=== PATIENT | female | born 1970 | race Caucasian/White ===

== ENCOUNTER 2016-08-13 11:40 | Emergency (ER) | payer BC ==
[2016-08-13] MEDS ORDERED: DUONEB 0.5-3 MG/3 ml Neb IH ONE ×2 (12:17→13:05)
--- NOTE | 2016-08-13 12:25 | ERPHSYRPT ---
- History of Present Illness Time Seen by Provider: 08/13/16 12:15 Source: patient Exam Limitations: clinical condition Patient Subjective Stated Complaint: PT REPORTS COUGH-UNABLE TO COUGH ANYTHING UP-SOB WITH MOVEMENT-SORENESS WITH COUGH-UNSURE OF FEVER-DENIES N/V/D-STATES WAS PLACED ON PREDNISONE SAT-HAS GOTTEN WORSE SINCE THEN Triage Nursing Assessment: PT PINK WARM ET DRY-NO RETRACTIONS NOTED-WHEEZES ADVENTIOUS BREATH SOUNDS NOTED THROUGHOUT-ABLE TO SPEAK IN COMPLETE SENTECES WITH EASE Physician History: PATIENT COMPLAINS OF PRODUCTIVE COUGH GREEN SPUTUM, SMOKES DAILY, PLACED ONTO PREDNISONE PAST FEW DAYS NO RELIEF. UNSURE OR FEVER OR CHILLS.HAS ASSOCIATED DIFFICULTY BREATHING. Timing/Duration: day(s) Cough Quality/Degree: productive cough, sputum Possible Cause: occasional episodes Modifying Factors: Improves With: coughing Associated Symptoms: chest pain/soreness, cough Allergies/Adverse Reactions: No Known Drug Allergies Allergy (Verified 08/13/16 11:49) Home Medications: Lisinopril/Hydrochlorothiazide [Lisinopril-Hctz 20-12.5 mg Tab] 1 tab PO DAILY 10/22/12 [History] Metformin HCl 1000 mg [Glucophage 1000 MG] 1,000 mg PO BID 10/22/12 [History] Hx Tetanus, Diphtheria Vaccination/Date Given: Yes Hx Influenza Vaccination/Date Given: Yes Hx Pneumococcal Vaccination/Date Given: No Immunizations Up to Date: Yes - Review of Systems Constitutional: No Fever, No Chills Eyes: No Symptoms Ears, Nose, & Throat: No Symptoms Respiratory: Cough, Dyspnea Cardiac: No Symptoms, No Chest Pain, No Edema, No Syncope Abdominal/Gastrointestinal: No Symptoms, No Abdominal Pain, No Nausea, No Vomiting, No Diarrhea Genitourinary Symptoms: No Symptoms, No Dysuria Musculoskeletal: No Symptoms, No Back Pain, No Neck Pain Skin: No Symptoms, No Rash Neurological: No Dizziness, No Focal Weakness, No Sensory Changes Psychological: No Symptoms Endocrine: No Symptoms All Other Systems: Reviewed and Negative - Past Medical History Pertinent Past Medical History: Yes Neurological History: No Pertinent History ENT History: No Pertinent History Cardiac History: Hypertension Respiratory History: Asthma Endocrine Medical History: Diabetes Type II Musculoskeletal History: No Pertinent History GI Medical History: No Pertinent History History: No Pertinent History Psycho-Social History: No Pertinent History Female Reproductive Disorders: No Pertinent History - Past Surgical History Past Surgical History: Yes Neuro Surgical History: No Pertinent History Cardiac: No Pertinent History Respiratory: No Pertinent History Gastrointestinal: Cholecystectomy Genitourinary: No Pertinent History Musculoskeletal: No Pertinent History Female Surgical History: Section Other Surgical History: Carpal tunnel on right hand 1992 - Social History Smoking Status: Current every day smoker How long have you smoked: 25 years Exposure to second hand smoke: Yes Drug Use: none Patient Lives Alone: No - Female History Hx Last Menstrual Period: LAST WEEK Hx Now: No - Nursing Vital Signs Nursing Vital Signs: Initial Vital Signs Temperature 97.4 F Temperature Source Oral Pulse Rate 105 Respiratory Rate 18 Blood Pressure 117/74 Pain Intensity 0 - Physical Exam General Appearance: no apparent distress, alert Eye Exam: PERRL/EOMI, eyes nml inspection Ears, Nose, Throat Exam: normal ENT inspection, TMs normal, pharynx normal, moist mucous membranes Neck Exam: normal inspection, non-tender, supple, full range of motion Respiratory Exam: diminished breath sounds, wheezing, No respiratory distress Cardiovascular Exam: regular rate/rhythm, normal heart sounds Gastrointestinal/Abdomen Exam: soft, normal bowel sounds, No tenderness Back Exam: normal inspection, No CVA tenderness, No vertebral tenderness Extremity Exam: normal inspection, normal range of motion Neurologic Exam: alert, oriented x 3, cooperative, normal mood/affect, sensation nml, No motor deficits Skin Exam: normal color, warm, dry, No rash Lymphatic Exam: No adenopathy SpO2 Interpretation: normal SpO2: 97 Oxygen Delivery: Room Air - Radiology Exams Chest X-ray Interpretation: Discussed w/ radiologist, Negative, No Infiltrates Ordered Tests: Active Orders 24 hr Category Date Time Status Oxygen-ED Only NASAL CANNULA 2 lpm Care 08/13/16 12:17 Active CHEST 1 VIEW (PORTABLE) Stat Exams 08/13/16 12:17 Completed BLOOD CULTURE Stat Lab 08/13/16 12:40 Received BMP Stat Lab 08/13/16 12:40 Completed CBC W DIFF Stat Lab 08/13/16 12:40 Completed Respiratory Nebulizer STAT RT 08/13/16 12:18 Completed Respiratory Nebulizer STAT RT 08/13/16 13:53 Completed Medication Summary Generic Name Dose Route Start Last Admin Trade Name Freq PRN Reason Stop Dose Admin Sodium Chloride 1,000 mls @ 200 mls/hr 08/13/16 12:30 08/13/16 13:06 Sodium Chloride 0.9% 1000 Ml IV 09/12/16 12:29 200 mls/hr .Q5H ENMANUEL Administration Ceftriaxone Sodium/Dextrose 50 mls @ 100 mls/hr 08/13/16 12:30 08/13/16 13:06 Rocephin 1 Gm-D5w 50 Ml Bag IV 09/12/16 12:29 100 mls/hr Q24H ENMANUEL Administration Discontinued Medications Generic Name Dose Route Start Last Admin Trade Name Zac DAVID Reason Stop Dose Admin Albuterol/Ipratropium 3 ml 08/13/16 12:17 08/13/16 13:09 Duoneb 0.5-3 Mg/3 Ml Neb IH 08/13/16 12:18 3 ml STAT ONE Administration Albuterol/Ipratropium Confirm 08/13/16 13:05 Duoneb 0.5-3 Mg/3 Ml Neb Administered 08/13/16 13:06 Dose 3 ml IH .STK-MED ONE Sodium Chloride Confirm 08/13/16 13:00 Sodium Chloride 0.9% 1000 Ml Administered 08/13/16 13:01 Dose 1,000 mls @ ud .ROUTE .STK-MED ONE Ceftriaxone Sodium/Dextrose Confirm 08/13/16 13:01 Rocephin 1 Gm-D5w 50 Ml Bag Administered 08/13/16 13:02 Dose 50 mls @ ud IV .STK-MED ONE Levalbuterol HCl 1.25 mg 08/13/16 13:43 08/13/16 13:53 Xopenex 1.25 Mg/0.5 Ml Ud Nebule IH 08/13/16 13:44 1.25 mg STAT ONE Administration Levalbuterol HCl Confirm 08/13/16 13:47 Xopenex 1.25 Mg/0.5 Ml Ud Nebule Administered 08/13/16 13:48 Dose 1.25 mg IH .STK-MED ONE Sodium Chloride Confirm 08/13/16 13:48 Sodium Chloride 3 Ml Ud Nebules Administered 08/13/16 13:49 Dose 3 ml IH .STK-MED ONE Lab/Rad Data: Laboratory Result Diagrams 08/13/16 12:40 08/13/16 12:40 Laboratory Results 08/13/16 08/13/16 Range/Units 12:40 12:40 WBC 12.0 H (4.0-10.5) K/mm3 RBC 5.47 H (4.1-5.4) M/mm3 Hgb 15.5 (12.0-16.0) gm/dl Hct 46.3 (35-47) % MCV 84.6 (78-100) fl MCH 28.3 (26-32) pg MCHC 33.5 (32-36) g/dl RDW 15.7 H (11.5-14.0) % Plt Count 348 (150-450) K/mm3 MPV 10.1 H (6-9.5) fl Gran % 56.2 (36.0-66.0) % Lymphocytes % 35.5 (24.0-44.0) % Monocytes % 5.9 (0.0-12.0) % Eosinophils % 2.2 (0.00-5.0) % Basophils % 0.2 (0.0-0.4) % Basophils # 0.02 (0-0.4) Sodium 134 L (136-145) mEq/L Potassium 3.7 (3.5-5.1) mEq/L Chloride 97 L (98-107) mEq/L Carbon Dioxide 26.1 (21-32) mEq/L Anion Gap 14.3 (5-15) MEQ/L BUN 21 H (9-20) mg/dL Creatinine 1.30 (0.55-1.30) mg/dl Estimated GFR 47 ML/MIN Glucose 270 H (70-110) MG/DL Calcium 9.2 (8.5-10.1) mg/dL - Progress Progress Note: 08/13/16 12:23 PATIENT ADMINISTERED IV FLUIDS NORMAL SALINE, DUO NEB AEROSOL TX, ROCEPHIN 1GM AFTER 2 SETS OF BLOOD CULTURES 08/13/16 14:23 HAD 2ND AEROSOL TX XOPENEX 1.25MG AEROSOL Counseled pt/family regarding: lab results, diagnosis, need for follow-up - Departure Time of Disposition: 14:35 Departure Disposition: Home Clinical Impression: ACUTE ASTHMATIC BRONCHITIS Condition: Stable Critical Care Time: No Referrals: ALFONZO MURILLO NP [Primary Care Provider] - Additional Instructions: ANTIBIOTIC CEFTIN 250MG TWICE DAILY FOR 10 DAYS. BEGIN ALBUTEROL NEBULIZER EVERY 4 HOURS FOR DIFFICULTY BREATHING NEEDED. CONSULT YOUR FAMILY PHYSICIAN FOR EVALUATION IN 1 WEEK, AND CONTINUE ALL CURRENT MEDICATIONS. Prescriptions: Albuterol 2.5 mg/3 ml Neb [Proventil 2.5 mg/3 ml Neb] 2.5 mg IH Q4HPRN PRN #25 neb PRN Reason: DIFFICULTY BREATHING Cefuroxime Axetil [Cefuroxime] 250 mg PO BID #20 tablet
[2016-08-13] MEDS ORDERED: Sodium Chloride 0.9% 1000 ML 1,000 ML IV SCH (12:30)
[2016-08-13] MEDS ORDERED: ROCEPHIN 1 Gm-D5w 50 ml Bag** 50 ML IV SCH (12:30)
--- NOTE | 2016-08-13 12:46 | XRAY ---
Indication: Dyspnea and cough. Comparison: November 04, 2011 Portable chest again demonstrates normal heart, lungs, and bony thorax.
[2016-08-13] MEDS ORDERED: Sodium Chloride 0.9% 1000 ML 1,000 ML ONE (13:00)
[2016-08-13] MEDS ORDERED: ROCEPHIN 1 Gm-D5w 50 ml Bag** 50 ML IV ONE (13:01)
[2016-08-13 13:02] LABS: BASOPHIL % 0.2 % (0.0-0.4); Eosinophil % 2.2 % (0.00-5.0); Granulocytes % 56.2 % (36.0-66.0); Lymphocytes % 35.5 % (24.0-44.0); Mean Cell Volume 84.6 fl (78-100); Mean Corpuscular Hemoglobin 28.3 pg (26-32); Mean Platelet Volume 10.1 fl (6-9.5); Monocytes % 5.9 % (0.0-12.0); Platelet Count 348 K/mm3 (150-450); Red Blood Count 5.47 M/mm3 (4.1-5.4); Red Cell Distribution Width 15.7 % (11.5-14.0)
[2016-08-13 13:28] LABS: ANION GAP 14.3 MEQ/L (5-15); Carbon Dioxide 26.1 mEq/L (21-32); Potassium 3.7 mEq/L (3.5-5.1)
[2016-08-13] MEDS ORDERED: Xopenex 1.25 MG/0.5 ML UD NEBULE IH ONE ×2 (13:43→13:47)
[2016-08-13] MEDS ORDERED: Sodium Chloride 3 ML UD NEBULES IH ONE (13:48)
[2016-08-13 14:22] VITALS: O2SAT 97
[2016-08-13 14:49] VITALS: BP 124/70; PULSE 70
== END 2016-08-13 14:49 | disposition home or self-care (01) ==
LOC: ED 11:40
DX: J45.909 Unspecified asthma, uncomplicated (principal); R05 Cough; I10 Essential (primary) hypertension; E11.9 Type 2 diabetes mellitus without complications
CPT/HCPCS: 36415; 71010; 80048; 85025; 87040; 94640; 96360; 96365; 99283; J0696

== ENCOUNTER 2016-12-10 08:44 | Emergency (ER) | payer OTHER ==
[2016-12-10] MEDS ORDERED: DUONEB 0.5-3 MG/3 ml Neb IH ONE ×2 (09:07→09:12)
[2016-12-10] MEDS ORDERED: TYLENOL 325 MG PO ONE (09:08)
[2016-12-10] MEDS ORDERED: DECADRON 10MG INJ. IM ONE (09:08)
--- NOTE | 2016-12-10 09:13 | ERPHSYRPT ---
- History of Present Illness Time Seen by Provider: 12/10/16 09:00 Source: patient Patient Subjective Stated Complaint: Pt states she has been vomiting and had a cough for the last couple of days. Today she woke up with pain under the left breast and thinks she might have pulled something. Triage Nursing Assessment: Pt alert and oriented x3. skin pink warm and dry. afebrile. respirations easy and nonlabored. lung sounds - expiratory wheezes noted Physician History: CC: cough Hx: 46 y/o patient of JENNY Mclaughlin with hx of DM, smoking, HTN, high chol. She has cough illness with yellow phlegm, coughing. Some pain in left chest with cough. No fever or chills. Some post tussive nausea and vomiting. She has inhaler but not using it as almost out. Sugars run about 160 on meds. Was jittery in the past with prednisone. Timing/Duration: day(s) (couple) Allergies/Adverse Reactions: sumatriptan [From Imitrex] Allergy (Verified 12/10/16 08:54) Hives Home Medications: Lisinopril/Hydrochlorothiazide [Lisinopril-Hctz 20-12.5 mg Tab] 1 tab PO DAILY 10/22/12 [History] Metformin HCl 1000 mg [Glucophage 1000 MG] 1,000 mg PO BID 10/22/12 [History] Atorvastatin Calcium [Lipitor] 20 mg PO DAILY 12/10/16 [History] Sitagliptin Phosphate 50 MG [Januvia 50 MG] 50 mg PO DAILY 12/10/16 [ History] Hx Tetanus, Diphtheria Vaccination/Date Given: Yes Hx Influenza Vaccination/Date Given: Yes Hx Pneumococcal Vaccination/Date Given: Yes - Review of Systems Constitutional: Malaise, No Fever, No Chills Eyes: No Symptoms Ears, Nose, & Throat: Nose Congestion Respiratory: Cough, No Dyspnea Cardiac: Chest Pain (left ribs) Abdominal/Gastrointestinal: Nausea, Vomiting (post tussive), No Abdominal Pain Genitourinary Symptoms: No Dysuria Skin: No Rash Neurological: No Headache All Other Systems: Reviewed and Negative - Past Medical History Pertinent Past Medical History: Yes Neurological History: No Pertinent History ENT History: No Pertinent History Cardiac History: Hypertension Respiratory History: Asthma Endocrine Medical History: Diabetes Type II Musculoskeletal History: No Pertinent History GI Medical History: No Pertinent History History: No Pertinent History Psycho-Social History: No Pertinent History, Depression Female Reproductive Disorders: No Pertinent History - Past Surgical History Past Surgical History: Yes Neuro Surgical History: No Pertinent History Cardiac: No Pertinent History Respiratory: No Pertinent History Gastrointestinal: Cholecystectomy Genitourinary: No Pertinent History Musculoskeletal: No Pertinent History, Orthopedic Surgery Female Surgical History: Section Other Surgical History: Carpal tunnel on right hand 1992. left knee surgery - Social History Smoking Status: Current every day smoker How long have you smoked: 25 years Exposure to second hand smoke: Yes Drug Use: none Patient Lives Alone: No - Female History Hx Last Menstrual Period: 12/07/2016 Hx Now: No - Nursing Vital Signs Nursing Vital Signs: Initial Vital Signs Temperature 98.0 F Temperature Source Oral Pulse Rate 111 Respiratory Rate 16 Blood Pressure [Right Arm] 141/98 Pain Intensity 3 - Physical Exam General Appearance: alert Eye Exam: PERRL/EOMI Ears, Nose, Throat Exam: normal ENT inspection, moist mucous membranes Neck Exam: normal inspection, non-tender, supple Respiratory Exam: wheezing, No respiratory distress Cardiovascular Exam: regular rate/rhythm, No murmur Gastrointestinal/Abdomen Exam: soft, No tenderness, No distention, No mass, No guarding Back Exam: normal inspection Extremity Exam: normal inspection, No calf tenderness, No pedal edema Neurologic Exam: alert, oriented x 3, cooperative, sensation nml, No motor deficits Skin Exam: warm, dry, No rash SpO2 Interpretation: normal SpO2: 100 Oxygen Delivery: Room Air - Course Nursing assessment & vital signs reviewed: Yes EKG Interpreted by Me: RATE (95), Sinus Rhythm, NORMAL AXIS, NORMAL INTERVALS ( QTc 448), Q-wave (borderline inderior unchanged from 2011), NORMAL ST-T - Radiology Exams cxr X-ray Interpretation: Teleradiologist Report, Negative Ordered Tests: Active Orders 24 hr Category Date Time Status Accucheck STAT Care 12/10/16 09:07 Active EKG-ER Only STAT Care 12/10/16 09:07 Active Pulse Oximetry (ED) STAT Care 12/10/16 09:07 Active CHEST 2 VIEWS (PA AND LAT) Stat Exams 12/10/16 09:07 Completed Respiratory Nebulizer STAT RT 12/10/16 09:07 Active Medication Summary Discontinued Medications Generic Name Dose Route Start Last Admin Trade Name Freq PRN Reason Stop Dose Admin Acetaminophen 650 mg 12/10/16 09:08 12/10/16 09:29 Tylenol 325 Mg PO 12/10/16 09:09 650 mg STAT ONE Administration Acetaminophen Confirm 12/10/16 09:20 Tylenol 325 Mg Administered 12/10/16 09:21 Dose 650 mg .ROUTE .STK-MED ONE Albuterol/Ipratropium 3 ml 12/10/16 09:07 Duoneb 0.5-3 Mg/3 Ml Neb IH 12/10/16 09:08 STAT ONE Albuterol/Ipratropium Confirm 12/10/16 09:12 Duoneb 0.5-3 Mg/3 Ml Neb Administered 12/10/16 09:13 Dose 3 ml IH .STK-MED ONE Dexamethasone Sodium Phosphate 10 mg 12/10/16 09:08 12/10/16 09:29 Decadron 10mg Inj. IM 12/10/16 09:09 10 mg STAT ONE Administration Dexamethasone Sodium Phosphate Confirm 12/10/16 09:20 Decadron 10mg Inj. Administered 12/10/16 09:21 Dose 10 mg .ROUTE .STK-MED ONE - Progress Progress Note: 12/10/16 09:12 Her pain seems related to musculoskeletel. Not short of breath to suggest VTE disease. She is wheezing but has hx of asthma and smoking fairly heavily. Counselled against smoking. Will give IM decadron, nebs. Check chest xray. 12/10/16 09:39 Accu check 235. She has not taken her AM meds. Advised watch sugars with steroids. Needs follow up with JENNY Mclaughlin. Asthmatic bronchitis instructions given. Counseled pt/family regarding: diagnosis, need for follow-up, rad results, smoking cessation - Departure Time of Disposition: 09:40 Departure Disposition: Home Clinical Impression: Acute asthmatic bronchitis, Smoker Diabetes type 2, controlled Qualifiers: Diabetes mellitus complication status: without complication Condition: Stable Critical Care Time: No Referrals: JOVANA MCLAUGHLIN [Primary Care Provider] - Instructions: Cough -- Adult, Bronchitis, Quit Smoking Additional Instructions: Rx doxycycline. Rx albuterol. Plenty of oral fluids. Stop smoking. Follow up this week with JENNY Mclaughlin. Return for different pain, trouble breathing or concerns. Tylenol as directed for fever or discomfort. Watch your sugars. Prescriptions: Albuterol Sulfate [Albuterol Sulfate Hfa] 2 puff IH Q4-6HPRN PRN #1 [email or web address] PRN Reason: cough or wheeze Doxycycline Hyclate [Vibramycin] 1 cap PO BID #20 capsule
[2016-12-10] MEDS ORDERED: TYLENOL 325 MG ONE (09:20)
[2016-12-10] MEDS ORDERED: DECADRON 10MG INJ. ONE (09:20)
--- NOTE | 2016-12-10 09:21 | XRAY ---
Indication: Chest pain and cough. Comparison: August 13, 2016. PA/lateral chest again demonstrates normal heart, lungs, and bony thorax.
[2016-12-10 09:57] VITALS: BP 119/73; PULSE 101; O2SAT 98
== END 2016-12-10 10:00 | disposition home or self-care (01) ==
LOC: ED 08:44
DX: J45.909 Unspecified asthma, uncomplicated (principal); Z87.891 Personal history of nicotine dependence; E11.9 Type 2 diabetes mellitus without complications; R06.2 Wheezing; I10 Essential (primary) hypertension; E78.00 Pure hypercholesterolemia, unspecified; R07.89 Other chest pain; Z79.84 Long term (current) use of oral hypoglycemic drugs; Z79.899 Other long term (current) drug therapy; R11.2 Nausea with vomiting, unspecified
CPT/HCPCS: 71020; 82962; 93005; 94640; 96372; 99284; J1100; A9270-GY

== ENCOUNTER 2017-05-31 11:58 | Emergency (ER) | payer OTHER ==
[2017-05-31] MEDS ORDERED: solu-MEDROL 125 MG IM ONE (12:21)
[2017-05-31] MEDS ORDERED: DUONEB 0.5-3 MG/3 ml Neb IH ONE ×2 (12:21→12:49)
--- NOTE | 2017-05-31 12:28 | ERPHSYRPT ---
- History of Present Illness Time Seen by Provider: 05/31/17 12:23 Source: patient Exam Limitations: no limitations Patient Subjective Stated Complaint: pt states she has a cough and pain upon inspiration for approx one week. seen at [facility] saturday and dx with bronchitis Triage Nursing Assessment: pt is aox3, ambulatory to cot with no difficulties, pt is afebrile, resps are easy and non labored, able to speak in full 6-7 word sentences. wheezes heard throughout all lungs gonzáles posteriorly, rhonci heard right middle and lower lobes, radial pulses are strong and equal. Physician History: 46-year-old white female with history of asthma diabetes depression. Patient arrives with complaint of cough shortness of breath wheezing symptoms going on for one week. Patient has been seen by [facility] she was placed on prednisone and Zithromax she uses an inhaler. She continues to wheeze she states she feels tight with deep breathing in the anterior chest. She has not had any fevers she states she cannot get anything up with her cough. Past medical history includes asthma, diabetes, depression. Past surgical history includes cholecystectomy carpal tunnel right hand left knee surgery and tubal ligation. Social history patient continues to smoke. Timing/Duration: week(s) (one week) Activities at Onset: none Severity of Dyspnea-Max: moderate Severity of Dyspnea-Current: moderate Possible Cause: occasional episodes Modifying Factors: Improves With: albuterol nebulizer Associated Symptoms: constant, cough, chest pain/discomfort (pain with deep breathing anterior chest), wheezing, painful breathing, No anxiety, No edema, No fever, No insomnia, No loss of appetite, No lightheadedness, No weakness, No ankle swelling, No chills, No hemoptysis, No calf pain, No dizziness, No heaviness, No heart racing, No lightheadedness, No leg swelling, No muscle spasms feet, No muscle spasms hands, No productive cough, No sweating, No tightness, No tingling face, No tingling hands International travel in last 2 weeks: No Allergies/Adverse Reactions: sumatriptan [From Imitrex] Allergy (Verified 05/31/17 12:21) Hives Home Medications: Lisinopril/Hydrochlorothiazide [Lisinopril-Hctz 20-12.5 mg Tab] 1 tab PO DAILY 10/22/12 [History] Metformin HCl 1000 mg [Glucophage 1000 MG] 1,000 mg PO BID 10/22/12 [History] Atorvastatin Calcium [Lipitor] 20 mg PO DAILY 12/10/16 [History] Sitagliptin Phosphate 50 MG [Januvia 50 MG] 50 mg PO DAILY 12/10/16 [ History] Hx Tetanus, Diphtheria Vaccination/Date Given: Yes Hx Influenza Vaccination/Date Given: No Hx Pneumococcal Vaccination/Date Given: No Immunizations Up to Date: Yes - Review of Systems Constitutional: No Fever, No Chills Eyes: No Symptoms Ears, Nose, & Throat: No Symptoms, No Ear Pain, No Ear Discharge, No Hearing Changes, No Tinnitus, No Nose Pain, No Nose Congestion, No Nose Discharge, No Sinus Drainage, No Epistaxis, No Mouth Pain, No Mouth Swelling, No Loose Teeth, No Throat Pain, No Throat Swelling, No Hoarse, No Painful Swallowing, No Snoring , No Stridor Respiratory: Cough, Dyspnea, Wheezing Cardiac: Chest Pain (pain with deep breathing anterior chest), No Edema, No Palpitations, No Syncope, No Orthopnea, No PND Abdominal/Gastrointestinal: No Abdominal Pain, No Nausea, No Vomiting, No Diarrhea Genitourinary Symptoms: No Dysuria Musculoskeletal: No Back Pain, No Neck Pain Skin: No Rash Neurological: No Dizziness, No Focal Weakness, No Sensory Changes Psychological: No Symptoms Endocrine: No Symptoms All Other Systems: Reviewed and Negative - Past Medical History Pertinent Past Medical History: Yes Neurological History: No Pertinent History ENT History: No Pertinent History Cardiac History: Hypertension Respiratory History: Asthma Endocrine Medical History: Diabetes Type II Musculoskeletal History: No Pertinent History GI Medical History: No Pertinent History History: No Pertinent History Psycho-Social History: No Pertinent History, Depression Female Reproductive Disorders: No Pertinent History - Past Surgical History Past Surgical History: Yes Neuro Surgical History: No Pertinent History Cardiac: No Pertinent History Respiratory: No Pertinent History Gastrointestinal: Cholecystectomy Genitourinary: No Pertinent History Musculoskeletal: No Pertinent History, Orthopedic Surgery Female Surgical History: Section, Tubal Ligation Other Surgical History: Carpal tunnel on right hand 1992. left knee surgery - Social History Smoking Status: Current every day smoker How long have you smoked: 25 Exposure to second hand smoke: Yes Drug Use: none Patient Lives Alone: No - Female History Hx Last Menstrual Period: 05/01/17 Hx Now: No - Nursing Vital Signs Nursing Vital Signs: Initial Vital Signs Temperature 98.6 F 05/31/17 12:08 Pulse Rate 69 05/31/17 12:08 Respiratory Rate 22 05/31/17 12:08 Blood Pressure 138/98 05/31/17 12:08 O2 Sat by Pulse Oximetry 99 05/31/17 12:08 Pain Scale Pain Intensity 0 - Physical Exam General Appearance: no apparent distress, alert Eye Exam: PERRL/EOMI Ears, Nose, Throat Exam: hearing grossly normal, normal ENT inspection, normal pharynx, No abnormal TM (R), No abnormal TM (L), No sinus pain/drainage, No hearing decreased, No nasal congestion, No pharyngeal erythema, No tonsillar exudate Neck Exam: normal inspection, non-tender, supple Respiratory Exam: airway intact, rhonchi (scattered rhonchi), wheezing ( bilateral wheezes) Cardiovascular/Chest Exam: normal heart sounds, regular rate/rhythm Abdominal/Gastrointestinal Exam: soft, No tenderness, No distention, No mass Extremity Exam: non-tender, normal range of motion, normal inspection, no calf tenderness, no pedal edema Peripheral Pulses Exam: dorsalis-pedis (R): 2+, dorsalis-pedis (L): 2+ Neurologic Exam: alert, oriented x 3, cooperative, long line teamster II-XII nml as tested, sensation nml, No motor deficits Skin Exam: normal color, warm, No dry SpO2 Interpretation: normal (99%) SpO2: 99 Oxygen Delivery: Room Air - Course Nursing assessment & vital signs reviewed: Yes EKG Interpreted by Me: RATE (93 bpm), Sinus Rhythm, Other (EKG: Sinus rhythm, 93 bpm, axisSI/QIII pattern, no acute ST or T wave changes, no acute changes as compared to December 10, 2016) - Radiology Exams Chest X-ray Interpretation: Discussed w/ radiologist (two-view chest x-ray: Impression : 1. No airspace infiltrate to suggest focal pneumonia or other acute cardiopulmonary disease is seen. 2. 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 This is an incidental finding) Ordered Tests: Active Orders 24 hr Category Date Time Status EKG-ER Only STAT Care 05/31/17 12:21 Active CHEST 2 VIEWS (PA AND LAT) Stat Exams 05/31/17 12:22 Completed Respiratory Nebulizer STAT RT 05/31/17 12:22 Completed Medication Summary Discontinued Medications Generic Name Dose Route Start Last Admin Trade Name Zac PRN Reason Stop Dose Admin Albuterol/Ipratropium 3 ml 05/31/17 12:21 05/31/17 12:50 Duoneb 0.5-3 Mg/3 Ml Neb IH 05/31/17 12:22 3 ml STAT ONE Administration Albuterol/Ipratropium Confirm 05/31/17 12:49 Duoneb 0.5-3 Mg/3 Ml Neb Administered 05/31/17 12:50 Dose 3 ml IH .STK-MED ONE Methylprednisolone Sodium Succinate 125 mg 05/31/17 12:21 05/31/17 12:42 Solu-Medrol 125 Mg IM 05/31/17 12:22 125 mg STAT ONE Administration Methylprednisolone Sodium Succinate Confirm 05/31/17 12:38 Solu-Medrol 125 Mg Administered 05/31/17 12:39 Dose 125 mg .ROUTE .STK-MED ONE - Progress Progress: improved, re-examined Air Movement: fair Progress Note: 05/31/17 12:27 46-year-old white female with history of asthma who continues to smoke. Arrives with complaint of nonproductive cough wheezing symptoms for one week. She states she was placed on Zithromax and prednisone 5 days ago. However she continues to cough she has some pain with deep breathing described as a tightness in her anterior chest. On physical examination patient with scattered coarse breath sounds and wheezing breath sounds are equal bilaterally. Will go ahead and give patient Solu-Medrol 125 IM the patient DuoNeb treatment obtain chest x-ray. 05/31/17 13:07 Patient given DuoNeb treatment and Solu-Medrol 125 IM. Patient improved . Chest x-ray impression 1 no airspace infiltrates to suggest focal pneumonia or other acute cardiopulmonary process. Patient apparently no longer on antibiotics. Will write for amoxicillin 500 mg orally 3 times a day for 10 days. Will go ahead and write for prednisone tapering dose patient only has 1 or 2 prednisone tablets left. Patient advised to quit smoking. 05/31/17 13:32 Patient is Accu-Chek 290 after steroid injection. Patient advised to keep an eye on her sugars. She states she's going to cut out her pop for the next several days. - Departure Time of Disposition: 13:13 Departure Disposition: Home Clinical Impression: Acute asthmatic bronchitis, Smoker Condition: Fair Critical Care Time: No Referrals: JOVANA NINO [Primary Care Provider] - Instructions: Cough -- Adult Additional Instructions: Return home. Plenty of fluids. Quit smoking. Tapering dose of prednisone as directed. Continue albuterol every 4 hours as needed. Amoxicillin as prescribed. Follow-up with your family doctor. Return for acute distress or for severe symptoms. monitor your blood sugars follow-up with your family doctor Prescriptions: Amoxicillin 500 mg PO TID #30 capsule
[2017-05-31] MEDS ORDERED: solu-MEDROL 125 MG ONE (12:38)
--- NOTE | 2017-05-31 12:54 | XRAY ---
Exam: Two-view chest from 05/31/2017. Comparison: Two-view chest from 12/10/2016. Indication: Cough, shortness of breath. Bronchitis. Findings: Upright PA and lateral chest films are submitted for evaluation. The heart size and contour are normal. The chencho and mediastinal structures appear unremarkable. The lungs are adequately inflated. No air space infiltrates, vascular congestion, pneumothorax, or pleural fluid is seen. No other significant focal lung abnormality is seen. The bones appear grossly intact. There is a small calcification seen at the lateral edge of the left humeral head which may represent hydroxyapatite deposition disease, or calcific tendinitis at the rotator cuff insertion. Correlate clinically. Impression: 1. No air space infiltrates to suggest focal pneumonia or other acute cardiopulmonary disease is seen. 2. 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 This is an incidental finding.
[2017-05-31 13:30] VITALS: BP 125/71; PULSE 89
[2017-05-31 13:33] VITALS: O2SAT 99
== END 2017-05-31 13:29 | disposition home or self-care (01) ==
LOC: ED 11:58
DX: J45.909 Unspecified asthma, uncomplicated (principal); F17.200 Nicotine dependence, unspecified, uncomplicated; E11.9 Type 2 diabetes mellitus without complications; Z79.899 Other long term (current) drug therapy; Z79.84 Long term (current) use of oral hypoglycemic drugs
CPT/HCPCS: 71020; 82962; 93005; 94640; 96372; 99284; J2930; A9270-GY

== ENCOUNTER 2018-01-11 22:09 | Emergency (ER) | payer OTHER ==
[2018-01-11] MEDS ORDERED: Pepcid 20 MG VIAL IV ONE ×2 (22:19→22:40)
[2018-01-11] MEDS ORDERED: Sodium Chloride 0.9% 1000 ML 1,000 ML IV STA (22:19)
[2018-01-11] MEDS ORDERED: Zofran 4 MG/2 ML VIAL IV ONE (22:19)
[2018-01-11] MEDS ORDERED: PROTONIX 40 MG IV IV ONE ×2 (22:19→22:40)
--- NOTE | 2018-01-11 22:19 | ERPHSYRPT ---
- History of Present Illness Time Seen by Provider: 01/11/18 22:16 Historian: patient, family Exam Limitations: no limitations Physician History: pt with 2 day history of abd pain and vomiting , following an URI treated with ab last week, also reports ventral hernia and concern for complication and tender in that area to palpation; discussed risks- benefits of imaging and pt wishes to proceed. Timing/Duration: today Activities at Onset: none Quality: cramping, sharpness, stabbing, throbbing Abdominal Pain Onset Location: epigastric Pain Radiation: no radiation Severity of Pain-Max: moderate Severity of Pain-Current: moderate Modifying Factors: Improves With: coughing, movement Associated Symptoms: loss of appetite, nausea, vomiting Previous symptoms: no prior history Allergies/Adverse Reactions: sumatriptan [From Imitrex] Allergy (Verified 01/11/18 22:19) Hives Home Medications: Lisinopril/Hydrochlorothiazide [Lisinopril-Hctz 20-12.5 mg Tab] 1 tab PO DAILY 10/22/12 [History] Metformin HCl 1000 mg [Glucophage 1000 MG] 1,000 mg PO BID 10/22/12 [History] Atorvastatin Calcium [Lipitor] 20 mg PO DAILY 12/10/16 [History] Sitagliptin Phosphate 50 MG [Januvia 50 MG] 50 mg PO DAILY 12/10/16 [ History] Hx Tetanus, Diphtheria Vaccination/Date Given: Yes Hx Influenza Vaccination/Date Given: No Hx Pneumococcal Vaccination/Date Given: No - Review of Systems Constitutional: No Fever, No Chills Eyes: No Symptoms Ears, Nose, & Throat: No Symptoms Respiratory: Cough, No Dyspnea Cardiac: No Chest Pain, No Edema, No Syncope Abdominal/Gastrointestinal: Abdominal Pain, Nausea, Vomiting, Appetite Changes, No Diarrhea Genitourinary Symptoms: Frequency, No Dysuria Musculoskeletal: No Back Pain, No Neck Pain Skin: No Rash Neurological: No Dizziness, No Focal Weakness, No Sensory Changes Psychological: No Symptoms Endocrine: No Symptoms All Other Systems: Reviewed and Negative - Past Medical History Pertinent Past Medical History: Yes Neurological History: No Pertinent History ENT History: No Pertinent History Cardiac History: Hypertension Respiratory History: Asthma Endocrine Medical History: Diabetes Type II Musculoskeletal History: No Pertinent History GI Medical History: No Pertinent History History: No Pertinent History Psycho-Social History: No Pertinent History, Depression Female Reproductive Disorders: No Pertinent History - Past Surgical History Past Surgical History: Yes Neuro Surgical History: No Pertinent History Cardiac: No Pertinent History Respiratory: No Pertinent History Gastrointestinal: Cholecystectomy Genitourinary: No Pertinent History Musculoskeletal: No Pertinent History, Orthopedic Surgery Female Surgical History: Section, Tubal Ligation Other Surgical History: Carpal tunnel on right hand 1992. left knee surgery - Social History Smoking Status: Current every day smoker How long have you smoked: 25 Exposure to second hand smoke: Yes Drug Use: none Patient Lives Alone: No - Nursing Vital Signs Nursing Vital Signs: Initial Vital Signs Temperature 98.8 F 01/11/18 22:10 Pulse Rate 112 H 01/11/18 22:10 Respiratory Rate 22 01/11/18 22:10 Blood Pressure 123/78 01/11/18 22:10 O2 Sat by Pulse Oximetry 98 01/11/18 22:10 Pain Scale Pain Intensity 6 - Physical Exam General Appearance: no apparent distress, alert Eye Exam: PERRL/EOMI, eyes nml inspection Ears, Nose, Throat Exam: normal ENT inspection, pharynx normal, moist mucous membranes Neck Exam: normal inspection, non-tender, supple, full range of motion Respiratory Exam: normal breath sounds, lungs clear, No respiratory distress Cardiovascular Exam: regular rate/rhythm, normal heart sounds Gastrointestinal/Abdomen Exam: soft, tenderness, distention, guarding, No mass Pelvic Exam: deferred Rectal Exam: deferred Back Exam: normal inspection, normal range of motion, No CVA tenderness, No vertebral tenderness Extremity Exam: normal inspection, normal range of motion, pelvis stable Neurologic Exam: alert, oriented x 3, cooperative, normal mood/affect, nml cerebellar function, sensation nml, No motor deficits Skin Exam: normal color, warm, dry - Course Nursing assessment & vital signs reviewed: Yes EKG Interpreted by Me: Sinus Rhythm, Sinus Tach, Non-specific ST Changes - Radiology Exams Chest X-ray Interpretation: Reviewed by me, Infiltrates - CT Exams Abdomen/Pelvis CT Interpretation: Tele-radiologist Report, No appendicitis, Other (fluid in colon which could be colitis) Ordered Tests: Active Orders 24 hr Category Date Time Status Clean Catch Urine Specimen STAT Care 01/11/18 22:19 Active EKG-ER Only STAT Care 01/11/18 22:19 Active IV Insertion STAT Care 01/11/18 22:19 Active ABDOMEN AND PELVIS W/0 CONTRAS [CT] Stat Exams 01/11/18 22:21 Taken CHEST 2 VIEWS (PA AND LAT) Stat Exams 01/11/18 22:20 Taken AMYLASE Stat Lab 01/11/18 22:35 Completed CBC W DIFF Stat Lab 01/11/18 22:35 Completed CMP Stat Lab 01/11/18 22:35 Completed D-DIMER QUANTITATION Stat Lab 01/11/18 22:35 Completed HCG QUALITATIVE,SERUM Stat Lab 01/11/18 22:35 Completed LIPASE Stat Lab 01/11/18 22:35 Completed Lactic Acid Stat Lab 01/11/18 22:35 Results TROPONIN Q3H Lab 01/11/18 22:35 Completed TROPONIN Q3H Lab 01/12/18 01:30 Ordered TROPONIN Q3H Lab 01/12/18 04:30 Ordered TROPONIN Q3H Lab 01/12/18 07:30 Ordered TROPONIN Q3H Lab 01/12/18 10:30 Ordered UA W/ MICROSCOPIC Stat Lab 01/11/18 22:35 Completed Respiratory Nebulizer STAT RT 01/11/18 23:23 Completed Medication Summary Discontinued Medications Generic Name Dose Route Start Last Admin Trade Name Freq PRN Reason Stop Dose Admin Albuterol/Ipratropium 3 ml 01/11/18 23:23 01/11/18 23:33 Duoneb 0.5-3 Mg/3 Ml Neb IH 01/11/18 23:24 3 ml STAT ONE Administration Albuterol/Ipratropium Confirm 01/11/18 23:32 Duoneb 0.5-3 Mg/3 Ml Neb Administered 01/11/18 23:33 Dose 3 ml IH .STK-MED ONE Diphenhydramine HCl 25 mg 01/11/18 23:19 01/11/18 23:26 Benadryl 50 Mg/Ml IV 01/11/18 23:20 25 mg STAT ONE Administration Diphenhydramine HCl Confirm 01/11/18 23:24 Benadryl 50 Mg/Ml Administered 01/11/18 23:25 Dose 50 mg .ROUTE .STK-MED ONE Famotidine 20 mg 01/11/18 22:19 01/11/18 22:47 Pepcid 20 Mg Vial IV 01/11/18 22:20 20 mg STAT ONE Administration Famotidine Confirm 01/11/18 22:40 Pepcid 20 Mg Vial Administered 01/11/18 22:41 Dose 20 mg IV .STK-MED ONE Sodium Chloride 1,000 mls @ 999 mls/hr 01/11/18 22:19 01/11/18 22:46 Sodium Chloride 0.9% 1000 Ml IV 01/11/18 23:19 999 mls/hr .Q1H1M STA Administration Sodium Chloride Confirm 01/11/18 22:40 Sodium Chloride 0.9% 1000 Ml Administered 01/11/18 22:41 Dose 1,000 mls @ ud .ROUTE .STK-MED ONE Ampicillin Sodium/Sulbactam Sodium 1.5 gm in 100 mls @ 200 mls/hr 01/11/18 23: 24 01/11/18 23:34 Unasyn 1.5gm / Nacl 100ml IV 01/11/18 23:53 100 ml/hr STAT STA 100 mls/hr Administration Ampicillin Sodium/Sulbactam Sodium Confirm 01/11/18 23:31 Unasyn 1.5gm / Nacl 100ml Administered 01/11/18 23:32 Dose 1.5 gm in 100 mls @ ud .ROUTE .STK-MED ONE Morphine Sulfate 4 mg 01/11/18 23:19 01/11/18 23:27 Morphine Sulfate 4 Mg Inj IV 01/11/18 23:20 4 mg STAT ONE Administration Morphine Sulfate Confirm 01/11/18 23:24 Morphine Sulfate 4 Mg Inj Administered 01/11/18 23:25 Dose 4 mg .ROUTE .STK-MED ONE Ondansetron HCl 4 mg 01/11/18 22:19 01/11/18 22:47 Zofran 4 Mg/2 Ml Vial IV 01/11/18 22:20 4 mg STAT ONE Administration Ondansetron HCl Confirm 01/11/18 22:40 Zofran 4 Mg/2 Ml Vial Administered 01/11/18 22:41 Dose 4 mg .ROUTE .STK-MED ONE Pantoprazole Sodium 40 mg 01/11/18 22:19 01/11/18 22:48 Protonix 40 Mg Iv IV 01/11/18 22:20 40 mg STAT ONE Administration Pantoprazole Sodium Confirm 01/11/18 22:40 Protonix 40 Mg Iv Administered 01/11/18 22:41 Dose 40 mg IV .STK-MED ONE Lab/Rad Data: Laboratory Result Diagrams 01/11/18 22:35 01/11/18 22:35 Laboratory Results 01/11/18 01/11/18 01/11/18 Range/Units 22:35 22:35 22:35 WBC (4.0-10.5) K/mm3 RBC (4.1-5.4) M/mm3 Hgb (12.0-16.0) gm/dl Hct (35-47) % MCV (78-100) fl MCH (26-32) pg MCHC (32-36) g/dl RDW (11.5-14.0) % Plt Count (150-450) K/mm3 MPV (6-9.5) fl Gran % (36.0-66.0) % Eos # (Auto) (0-0.5) Absolute Lymphs (auto) (1.0-4.6) Absolute Monos (auto) (0.0-1.3) Lymphocytes % (24.0-44.0) % Monocytes % (0.0-12.0) % Eosinophils % (0.00-5.0) % Basophils % (0.0-0.4) % Absolute Granulocytes (1.4-6.9) Basophils # (0-0.4) D-Dimer 406 (215-500) ng/mL Sodium (137-145) mmol/L Potassium (3.5-5.1) mmol/L Chloride (98-107) mmol/L Carbon Dioxide (22-30) mmol/L Anion Gap (5-15) MEQ/L BUN (7-17) mg/dL Creatinine (0.52-1.04) mg/dL Estimated GFR ML/MIN Glucose (74-106) mg/dL Lactic Acid (0.4-2.0) Calcium (8.4-10.2) mg/dL Total Bilirubin (0.2-1.3) mg/dL AST (14-36) U/L ALT (0-35) U/L Alkaline Phosphatase (38-126) U/L Troponin I (0.000-0.034) ng/mL Serum Total Protein (6.3-8.2) g/dL Albumin (3.5-5.0) g/dL Amylase (30-110) U/L Lipase (23-300) U/L Serum , Qual NEGATIVE (Negative) Ur Collection Type CLEAN CATCH Urine Color YELLOW (YELLOW) Urine Appearance CLEAR (CLEAR) Urine pH 6.0 (5-6) Ur Specific [place] 1.020 (1.005-1.025) Urine Protein NEGATIVE (Negative) Urine Ketones NEGATIVE (NEGATIVE) Urine Blood 250 (0-5) Larry/ul Urine Nitrite NEGATIVE (NEGATIVE) Urine Bilirubin NEGATIVE (NEGATIVE) Urine Urobilinogen NORMAL (0-1) mg/dL Ur Leukocyte Esterase NEGATIVE (NEGATIVE) Urine Microscopic RBC 15-25 (0-2) /HPF Urine Microscopic WBC 0-2 (0-5) /HPF Ur Epithelial Cells MODERATE (FEW) /HPF Urine Bacteria RARE (NEGATIVE) /HPF Urine Culture Reflexed NO (NO) Urine Glucose 1000 (NEGATIVE) mg/dL Specimen Received 01/11/18 [id number] 01/11/18 01/11/18 01/11/18 Range/Units 22:35 22:35 22:35 WBC (4.0-10.5) K/mm3 RBC (4.1-5.4) M/mm3 Hgb (12.0-16.0) gm/dl Hct (35-47) % MCV (78-100) fl MCH (26-32) pg MCHC (32-36) g/dl RDW (11.5-14.0) % Plt Count (150-450) K/mm3 MPV (6-9.5) fl Gran % (36.0-66.0) % Eos # (Auto) (0-0.5) Absolute Lymphs (auto) (1.0-4.6) Absolute Monos (auto) (0.0-1.3) Lymphocytes % (24.0-44.0) % Monocytes % (0.0-12.0) % Eosinophils % (0.00-5.0) % Basophils % (0.0-0.4) % Absolute Granulocytes (1.4-6.9) Basophils # (0-0.4) D-Dimer (215-500) ng/mL Sodium 134 L (137-145) mmol/L Potassium 3.8 (3.5-5.1) mmol/L Chloride 100 (98-107) mmol/L Carbon Dioxide 21 L (22-30) mmol/L Anion Gap 16.9 H (5-15) MEQ/L BUN 16 (7-17) mg/dL Creatinine 1.15 H (0.52-1.04) mg/dL Estimated GFR 54.0 ML/MIN Glucose 331 H (74-106) mg/dL Lactic Acid 2.2 H (0.4-2.0) Calcium 9.3 (8.4-10.2) mg/dL Total Bilirubin 0.40 (0.2-1.3) mg/dL AST 23 (14-36) U/L ALT 21 (0-35) U/L Alkaline Phosphatase 109 (38-126) U/L Troponin I < 0.012 (0.000-0.034) ng/mL Serum Total Protein 7.7 (6.3-8.2) g/dL Albumin 4.1 (3.5-5.0) g/dL Amylase 60 (30-110) U/L Lipase 174 (23-300) U/L Serum , Qual (Negative) Ur Collection Type Urine Color (YELLOW) Urine Appearance (CLEAR) Urine pH (5-6) Ur Specific Buck[place] (1.005-1.025) Urine Protein (Negative) Urine Ketones (NEGATIVE) Urine Blood (0-5) Larry/ul Urine Nitrite (NEGATIVE) Urine Bilirubin (NEGATIVE) Urine Urobilinogen (0-1) mg/dL Ur Leukocyte Esterase (NEGATIVE) Urine Microscopic RBC (0-2) /HPF Urine Microscopic WBC (0-5) /HPF Ur Epithelial Cells (FEW) /HPF Urine Bacteria (NEGATIVE) /HPF Urine Culture Reflexed (NO) Urine Glucose (NEGATIVE) mg/dL Specimen Received 01/11/18 Range/Units 22:35 WBC 12.1 H (4.0-10.5) K/mm3 RBC 5.13 (4.1-5.4) M/mm3 Hgb 15.8 (12.0-16.0) gm/dl Hct 45.0 (35-47) % MCV 87.7 (78-100) fl MCH 30.8 (26-32) pg MCHC 35.1 (32-36) g/dl RDW 15.9 H (11.5-14.0) % Plt Count 386 (150-450) K/mm3 MPV 10.1 H (6-9.5) fl Gran % 57.2 (36.0-66.0) % Eos # (Auto) 0.57 H (0-0.5) Absolute Lymphs (auto) 3.89 (1.0-4.6) Absolute Monos (auto) 0.69 (0.0-1.3) Lymphocytes % 32.0 (24.0-44.0) % Monocytes % 5.7 (0.0-12.0) % Eosinophils % 4.7 (0.00-5.0) % Basophils % 0.4 (0.0-0.4) % Absolute Granulocytes 6.94 H (1.4-6.9) Basophils # 0.05 (0-0.4) D-Dimer (215-500) ng/mL Sodium (137-145) mmol/L Potassium (3.5-5.1) mmol/L Chloride (98-107) mmol/L Carbon Dioxide (22-30) mmol/L Anion Gap (5-15) MEQ/L BUN (7-17) mg/dL Creatinine (0.52-1.04) mg/dL Estimated GFR ML/MIN Glucose (74-106) mg/dL Lactic Acid (0.4-2.0) Calcium (8.4-10.2) mg/dL Total Bilirubin (0.2-1.3) mg/dL AST (14-36) U/L ALT (0-35) U/L Alkaline Phosphatase (38-126) U/L Troponin I (0.000-0.034) ng/mL Serum Total Protein (6.3-8.2) g/dL Albumin (3.5-5.0) g/dL Amylase (30-110) U/L Lipase (23-300) U/L Serum , Qual (Negative) Ur Collection Type Urine Color (YELLOW) Urine Appearance (CLEAR) Urine pH (5-6) Ur Specific [place] (1.005-1.025) Urine Protein (Negative) Urine Ketones (NEGATIVE) Urine Blood (0-5) Larry/ul Urine Nitrite (NEGATIVE) Urine Bilirubin (NEGATIVE) Urine Urobilinogen (0-1) mg/dL Ur Leukocyte Esterase (NEGATIVE) Urine Microscopic RBC (0-2) /HPF Urine Microscopic WBC (0-5) /HPF Ur Epithelial Cells (FEW) /HPF Urine Bacteria (NEGATIVE) /HPF Urine Culture Reflexed (NO) Urine Glucose (NEGATIVE) mg/dL Specimen Received - Progress Progress: improved, re-examined Progress Note: 01/12/18 00:16 pt improved with tx in ER ; discussed results with pt including limitations of testing performed and that undetected pathology could still be evolving and need for further eval and she chooses DC with out pt f/u PCP rather than further w/u in ER or admission at this time; she has the capacity to make this choice. 01/12/18 00:26 Counseled pt/family regarding: lab results, diagnosis, need for follow-up, rad results - Departure Time of Disposition: 00:18 Departure Disposition: Home Clinical Impression: Hematuria, Walking pneumonia, Colitis, Abdominal pain, Hernia of anterior abdominal wall Condition: Good Critical Care Time: No Referrals: JOVANA NINO [Primary Care Provider] - Instructions: Blood in the Urine (Hematuria) in Adults, Pneumonia, Adult (DC), Acute Abdomen (Belly Pain), Adult (DC), Abdominal Hernia (DC) Additional Instructions: see your dr to followup pneumonia and recheck urine for blood when off period. There is a hernia which does not appear to be the current problem , but should also be followed up with your dr. Followup with your dr to evaluate your colon. We have not confirmed a precise cause for your pain although there could be a colon condition or even abdominal strain from your coughing. Therefore further workup with your Dr is advised . return meantime if not improving or further concerns. Prescriptions: Amoxicillin/Potassium Clav [Augmentin 875-125 Tablet] 875 mg PO BID #20 tablet Metronidazole 500 mg [Flagyl 500 MG] 500 mg PO QID #30 tablet
[2018-01-11 22:40] LABS: BASOPHIL % 0.4 % (0.0-0.4); Basophil (Absolute #) 0.05 (0-0.4); Eosinophil % 4.7 % (0.00-5.0); Eosinophil (Absolute #) 0.57 (0-0.5); Granulocyte Absolute (ANC) 6.94 (1.4-6.9); Granulocytes % 57.2 % (36.0-66.0); Hemoglobin 15.8 gm/dl (12.0-16.0); Lymphocyte (Absolute #) 3.89 (1.0-4.6); Mean Cell Volume 87.7 fl (78-100); Mean Corpuscular Hemoglobin 30.8 pg (26-32); Mean Corpuscular Hgb Concent. 35.1 g/dl (32-36); Mean Platelet Volume 10.1 fl (6-9.5); Monocyte (Absolute #) 0.69 (0.0-1.3); Monocytes % 5.7 % (0.0-12.0); Platelet Count 386 K/mm3 (150-450); Red Blood Count 5.13 M/mm3 (4.1-5.4); Red Cell Distribution Width 15.9 % (11.5-14.0); White Blood Count 12.1 K/mm3 (4.0-10.5)
[2018-01-11] MEDS ORDERED: Sodium Chloride 0.9% 1000 ML 1,000 ML ONE (22:40)
[2018-01-11] MEDS ORDERED: Zofran 4 MG/2 ML VIAL ONE (22:40)
[2018-01-11 22:42] LABS: Lactic Acid 2.2 (0.4-2.0)
[2018-01-11 22:49] LABS: Appearance CLEAR (CLEAR); Bilirubin NEGATIVE (NEGATIVE); Blood 250 Ery/ul (0-5); Glucose 1000 mg/dL (NEGATIVE); Ketones NEGATIVE (NEGATIVE); Leukocyte Esterase NEGATIVE (NEGATIVE); Nitrite NEGATIVE (NEGATIVE); Protein,Urine Dip NEGATIVE (Negative); Urobilinogen NORMAL mg/dL (0-1); WBC 0-2 /HPF (0-5)
[2018-01-11 22:50] LABS: Bacteria RARE /HPF (NEGATIVE); Epithelial Cells MODERATE /HPF (FEW); RBC 15-25 /HPF (0-2)
[2018-01-11 23:12] LABS: ALBUMIN 4.1 g/dL (3.5-5.0); ANION GAP 16.9 MEQ/L (5-15); BILIRUBIN,TOTAL 0.4 mg/dL (0.2-1.3); Calcium 9.3 mg/dL (8.4-10.2); Creatinine 1 1.15 mg/dL (0.52-1.04); Potassium 3.8 mmol/L (3.5-5.1); Total Protein 7.7 g/dL (6.3-8.2)
[2018-01-11] MEDS ORDERED: MORPHINE SULFATE 4 MG INJ IV ONE (23:19)
[2018-01-11] MEDS ORDERED: BENADRYL 50 MG/ML IV ONE (23:19)
[2018-01-11] MEDS ORDERED: DUONEB 0.5-3 MG/3 ml Neb IH ONE ×2 (23:23→23:32)
[2018-01-11] MEDS ORDERED: Unasyn 1.5GM / NaCl 100ML 1.5 GM/100 ML IVPB IV STA (23:24)
[2018-01-11] MEDS ORDERED: BENADRYL 50 MG/ML ONE (23:24)
[2018-01-11] MEDS ORDERED: MORPHINE SULFATE 4 MG INJ ONE (23:24)
[2018-01-11] MEDS ORDERED: Unasyn 1.5GM / NaCl 100ML 1.5 GM/100 ML IVPB ONE (23:31)
[2018-01-12 00:39] VITALS: BP 118/75; PULSE 102; O2SAT 100
--- NOTE | 2018-01-12 07:48 | XRAY ---
Indication: Cough. Comparison: May 31, 2017. PA/lateral chest again demonstrates normal heart and lungs. Bony thorax intact. No new/acute findings.
--- NOTE | 2018-01-12 07:52 | XRAY ---
Indication: Abdominal pain and emesis. Ventral hernia. Multiple contiguous axial images obtained through the abdomen and pelvis without contrast as ordered. Comparison: None Lung bases again demonstrates minimal bibasilar fibrosis/scarring. No infiltrate or effusion. Heart is not enlarged. Noncontrasted stomach and bowel loops appear nonobstructed. Normal appendix. No free fluid/air. Fatty liver, previous cholecystectomy, and a few calcified splenic granulomas. Remaining liver, pancreas, spleen, adrenal glands, kidneys, ureters, bladder, and uterus appear unremarkable for noncontrast exam. Mild aortoiliac calcifications without AAA. Osseous structures intact. Tiny right supraumbilical fatty ventral hernia. Impression: 1. Fatty liver. 2. Tiny fatty supraumbilical ventral hernia. 3. Remaining CT abdomen/pelvis without contrast exam is negative. Comment: Preliminary interpretation was made by C. No discrepancy. CTDI 21.85
== END 2018-01-12 00:32 | disposition home or self-care (01) ==
LOC: ED 22:09
DX: R10.13 Epigastric pain (principal); R31.9 Hematuria, unspecified; J18.9 Pneumonia, unspecified organism; K52.9 Noninfective gastroenteritis and colitis, unspecified; R11.10 Vomiting, unspecified; E11.9 Type 2 diabetes mellitus without complications; Z79.84 Long term (current) use of oral hypoglycemic drugs; K46.9 Unspecified abdominal hernia without obstruction or gangrene; Z79.899 Other long term (current) drug therapy
CPT/HCPCS: 36000; 36415; 71046; 74176; 80053; 81000; 82150; 83605; 83690; 84484; 84703; 85025; 85379; 93005; 94150; 94640; 96365; 96374; 96375; 99284; J0295; J1200; J2270; J2405; A9270-GY

== ENCOUNTER 2019-08-18 22:19 | Emergency (ER) | payer OTHER ==
[2019-08-18] MEDS ORDERED: XYLOCAINE 1% HCL 20 ML MDV IJ ONE (22:20)
--- NOTE | 2019-08-18 22:28 | ERPHSYRPT ---
- History of Present Illness Time Seen by Provider: 08/18/19 22:27 Source: patient, family Exam Limitations: no limitations Physician History: 49 y/o white female smoker presents with cough, gagging from coughing and headache from coughing. pt completed doxycycline for a pneumonia. pt was given rx for steroids. however, she stopped it because raising her blood glucose. denies fever, denies n/v/d Timing/Duration: day(s) (2 to 3 days) Head Pain Location: global Severity of Pain-Max: mild Severity of Pain-Current: mild Recent Head Trauma: no recent headache/trauma Previous symptoms: no prior history Allergies/Adverse Reactions: sumatriptan [From Imitrex] Allergy (Verified 08/18/19 22:37) Hives Home Medications: Lisinopril/Hydrochlorothiazide [Lisinopril-Hctz 20-12.5 mg Tab] 1 tab PO DAILY 10/22/12 [History] Metformin HCl 1000 mg [Glucophage 1000 MG] 1,000 mg PO BID 10/22/12 [History] Atorvastatin Calcium [Lipitor] 20 mg PO DAILY 12/10/16 [History] Sitagliptin Phosphate 50 MG [Januvia 50 MG] 50 mg PO DAILY 12/10/16 [ History] Hx Tetanus, Diphtheria Vaccination/Date Given: Yes Hx Influenza Vaccination/Date Given: No Hx Pneumococcal Vaccination/Date Given: No - Review of Systems Constitutional: No Symptoms Eyes: No Symptoms Ears, Nose, & Throat: No Symptoms Respiratory: Cough Cardiac: No Symptoms Abdominal/Gastrointestinal: No Symptoms Genitourinary Symptoms: No Symptoms Musculoskeletal: No Symptoms Skin: No Symptoms Neurological: Headache Psychological: No Symptoms Endocrine: No Symptoms Hematologic/Lymphatic: No Symptoms Immunological/Allergic: No Symptoms All Other Systems: Reviewed and Negative - Past Medical History Pertinent Past Medical History: Yes Neurological History: No Pertinent History ENT History: No Pertinent History Cardiac History: Hypertension Respiratory History: Asthma Endocrine Medical History: Diabetes Type II Musculoskeletal History: Osteoarthritis, Rheumatoid Arthritis GI Medical History: No Pertinent History History: No Pertinent History Psycho-Social History: No Pertinent History, Depression Female Reproductive Disorders: No Pertinent History Other Medical History: Notes levels are a little off with her liver and kidneys , doctors are watching these. L knee scope a few years ago to fix ACL and meniscus. - Past Surgical History Past Surgical History: Yes Neuro Surgical History: No Pertinent History Cardiac: No Pertinent History Respiratory: No Pertinent History Gastrointestinal: Cholecystectomy Genitourinary: No Pertinent History Musculoskeletal: No Pertinent History, Orthopedic Surgery Female Surgical History: Section, Tubal Ligation Other Surgical History: Carpal tunnel on right hand 1992. left knee surgery - Social History Smoking Status: Current every day smoker How long have you smoked: 25 Exposure to second hand smoke: Yes Drug Use: none Patient Lives Alone: No - Nursing Vital Signs Nursing Vital Signs: Initial Vital Signs Temperature 98.9 F 08/18/19 22:25 Pulse Rate 65 08/18/19 22:25 Respiratory Rate 18 08/18/19 22:25 Blood Pressure 130/82 08/18/19 22:25 O2 Sat by Pulse Oximetry 100 08/18/19 22:25 Pain Scale Pain Intensity 4 - Physical Exam General Appearance: no apparent distress, alert, anxiety Eye Exam: PERRL/EOMI, eyes nml inspection Ears, Nose, Throat Exam: normal ENT inspection, TMs normal, moist mucous membranes Neck Exam: normal inspection, non-tender, supple, full range of motion Respiratory Exam: wheezing (mild bilat), No chest tenderness, No respiratory distress Cardiovascular Exam: regular rate/rhythm, normal heart sounds, normal peripheral pulses Gastrointestinal/Abdominal Exam: soft, normal bowel sounds, No tenderness Back Exam: normal inspection, normal range of motion, No CVA tenderness, No vertebral tenderness Extremity Exam: normal inspection, normal range of motion, pelvis stable Mental Status Exam: alert, oriented x 3, 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 Exam: normal hearing, normal speech, PERRL Coordination/Gait Exam: normal finger to nose, normal gait, normal cerebellar function Motor/Sensory Exam: no motor deficit, no sensory deficit, no pronator drift Skin Exam: normal color, warm, dry Lymphatic Exam: No adenopathy SpO2 Interpretation: normal O2 Delivery: Room Air - Course Nursing assessment & vital signs reviewed: Yes - Progress Progress: unchanged Air Movement: good Blood Culture(s) Obtained: No Antibiotics given: Yes Counseled pt/family regarding: diagnosis, need for follow-up - Departure Departure Disposition: Home Clinical Impression: Bronchitis Condition: Stable Critical Care Time: No Referrals: MEGHAN ANDREWS [Primary Care Provider] - Additional Instructions: drink plenty of fluids. stop smoking. use inhalers as directed on scheduled basis while awake. do not take your cough medicine within 2 hours of your seroquel. follow up with primary doctor for persistent symptoms Prescriptions: Azithromycin 250 mg [Zithromax 250 MG TABLET] 250 mg PO ZPACK #6 tablet Hydrocodone Bit/Acetaminophen [Hydrocodone-Acetaminophen Soln] 10 ml PO Q6H # 120 ml
[2019-08-18] MEDS ORDERED: Rocephin 1000 MG INJ IM ONE (23:35)
[2019-08-18] MEDS ORDERED: HYDROCODONE-ACETAMIN 2.5-108/5 ML SOLUTION PO STA (23:35)
[2019-08-18] MEDS ORDERED: HYDROCODONE-ACETAMIN 2.5-108/5 ML SOLUTION ONE (23:39)
[2019-08-18] MEDS ORDERED: Rocephin 1000 MG INJ ONE (23:40)
[2019-08-19] VITALS: BP 117/84; PULSE 95; O2SAT 96
== END 2019-08-19 | disposition home or self-care (01) ==
LOC: ED 22:19
DX: J40 Bronchitis, not specified as acute or chronic (principal)
CPT/HCPCS: 96372; 99284; J0696; A9270-GY

== ENCOUNTER 2020-12-07 08:37 | Day surgery (SDC) | payer OTHER ==
[2020-12-07] MEDS ORDERED: LIDOCAINE HCL 2% 100 MG/5 ML IJ ONE (08:38)
[2020-12-07] MEDS ORDERED: DIPRIVAN 200 MG/20 ML IV ONE (09:48)
--- NOTE | 2020-12-07 11:40 | XRAY ---
Indication: Bilateral L4-S1 MBB. Intraoperative fluoroscopy provided for 9 seconds. Single digital spot image submitted for interpretation demonstrate posterior needle tips projecting over the expected left and right L4-S1 nerve roots. Correlate with intraoperative findings/report.
--- NOTE | 2020-12-07 11:42 | XRAY ---
9 seconds fluoroscopy time in surgery for bilateral L4-S1 MBB.
[2020-12-07] MEDS ORDERED: Lactated Ringers 1,000 ML IV ONE (15:59)
== END 2020-12-07 10:11 | disposition home or self-care (01) ==
LOC: SDC-PAIN 08:37
PROVIDERS: ATTEND Psychiatry & Neurology Pain Medicine
DX: M47.816 Spondylosis without myelopathy or radiculopathy, lumbar region (principal); I10 Essential (primary) hypertension; M19.90 Unspecified osteoarthritis, unspecified site; M06.9 Rheumatoid arthritis, unspecified; F41.9 Anxiety disorder, unspecified; F32.9 Major depressive disorder, single episode, unspecified; E11.9 Type 2 diabetes mellitus without complications; J44.9 Chronic obstructive pulmonary disease, unspecified; J45.909 Unspecified asthma, uncomplicated; K21.9 Gastro-esophageal reflux disease without esophagitis; E78.5 Hyperlipidemia, unspecified; Z79.899 Other long term (current) drug therapy
CPT/HCPCS: 36415; 72020; 77002; 81025; 82947; J2704

== ENCOUNTER 2021-02-08 08:32 | Day surgery (SDC) | payer OTHER ==
[2021-02-08] MEDS ORDERED: BUPIVACAINE 0.5% VIAL IJ ONE (08:33)
[2021-02-08] MEDS ORDERED: DIPRIVAN 200 MG/20 ML IV ONE (10:12)
[2021-02-08] MEDS ORDERED: Lactated Ringers 1,000 ML IV ONE (11:32)
--- NOTE | 2021-02-08 11:49 | XRAY ---
Indication: Bilateral L4-S1 MBB. Intraoperative fluoroscopy provided for 10 seconds. Single digital spot image submitted for interpretation demonstrates posterior needle tips projecting over the expected left and right L4-S1 nerve roots. Correlate with intraoperative findings/report.
--- NOTE | 2021-02-08 12:04 | XRAY ---
10 seconds of fluoroscopy was used in surgery for a bilateral L4-L5 and L5-S1 MBB.
== END 2021-02-08 10:35 | disposition home or self-care (01) ==
LOC: SDC-PAIN 08:32
PROVIDERS: ATTEND Psychiatry & Neurology Pain Medicine
DX: M47.816 Spondylosis without myelopathy or radiculopathy, lumbar region (principal); E11.9 Type 2 diabetes mellitus without complications; I10 Essential (primary) hypertension; M06.9 Rheumatoid arthritis, unspecified; J44.9 Chronic obstructive pulmonary disease, unspecified; F41.8 Other specified anxiety disorders; K21.9 Gastro-esophageal reflux disease without esophagitis; E78.5 Hyperlipidemia, unspecified; Z79.899 Other long term (current) drug therapy
CPT/HCPCS: 64493; 64494; 72020; 77002; 82947; 84703; J2704

== ENCOUNTER 2021-02-27 11:48 | Day surgery (SDC) | payer OTHER ==
--- NOTE | 2021-02-27 09:07 | HP ---
DATE OF SURGERY: 02/27/2021 HISTORY OF PRESENT ILLNESS: The patient is 50 year-old who had bulge upper abdomen. She had CT scan that showed incarcerated ventral hernia, recommended repair. PAST MEDICAL HISTORY: Diabetes, allergies, anxiety, hypertension. PAST SURGICAL HISTORY: Cholecystectomy, section, carpal tunnel, tubal ligation. MEDICATIONS: Vitamin D, loratadine, hydrocodone, Seroquel, Lexapro, lisinopril, Ozempic, Victoza, Farxiga, ezetimibe, tamoxifen, atorvastatin, Triamterene, Januvia. ALLERGIES: IMITREX. FAMILY HISTORY: Breast cancer, diabetes. SOCIAL HISTORY: One and a half pack per day smoker, occasional alcohol use. REVIEW OF SYSTEMS: Fourteen systems reviewed. No chest pain or palpitations. Other systems negative or noncontributory as above and per preadmission questionnaire. PHYSICAL EXAMINATION: GENERAL: No acute distress. HEENT: Sclerae nonicteric. NECK: No JVD. CHEST: Equal excursion, nonlabored breathing. CVS: Regular rate and rhythm. ABDOMEN: Soft. Incarcerated ventral hernia. No peritoneal signs. EXTREMITIES: No significant edema. NEURO: Alert, oriented, moving extremities symmetrically. PSYCH: Appropriate mood and affect. IMPRESSION: Incarcerated ventral hernia. I feel the patient would benefit from repair. Discussed options of laparoscopic repair, possible repair of incarcerated ventral hernia with mesh. 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 General risk of anesthesia, deep venous thrombosis, pulmonary embolism, pneumonia but not limited to and consent obtained, will proceed with laparoscopic repair of incarcerated ventral hernia with mesh possible open possible repair of other hernia if indicated.
[~2021-02-27 11:48] MED LIST: KEFZOL 1 GM ONE; Lactated Ringers 0 ML IV ONE; Sensorcaine 0.25% 10 ML ONE
[2021-02-27] MEDS ORDERED: Lactated Ringers 1,000 ML IV SCH (12:30)
[2021-02-27] MEDS ORDERED: CEFAZOLIN 2 GM-D5W BAG** 2 GM/50 ML ML IV SCH (12:30)
[2021-02-27] MEDS ORDERED: Xopenex 1.25 MG/0.5 ML UD NEBULE IH ONE ×2 (12:55→12:58)
[2021-02-27] MEDS ORDERED: Sodium Chloride 3 ML UD NEBULES IH ONE (12:57)
[2021-02-27] MEDS ORDERED: Versed 2 MG/2 ML Injection ONE (14:00)
[2021-02-27] MEDS ORDERED: DIPRIVAN 200 MG/20 ML IV ONE (14:00)
[2021-02-27] MEDS ORDERED: ROBINUL ONE (14:00)
[2021-02-27] MEDS ORDERED: SUBLIMAZE 100 MCG/2 ML ONE ×3 (14:02→15:54)
[2021-02-27] MEDS ORDERED: Zemuron 100 MG/10 ML ONE (15:39)
[2021-02-27] MEDS ORDERED: BRIDION 200MG/2ML IV ONE (15:39)
[2021-02-27] MEDS ORDERED: Marcaine 0.5%/Epinephrine 10 ML ONE (15:40)
[2021-02-27] MEDS ORDERED: Hydromorphone 1 mg/ml Injection ONE (15:54)
[2021-02-27] MEDS ORDERED: NORCO 5/325 MG PO PRN (16:38)
[2021-02-27] MEDS ORDERED: NORCO 5/325 MG ONE (16:39)
[2021-02-27 17:11] VITALS: O2SAT 95
[2021-02-27 17:31] VITALS: BP 141/89; PULSE 87
--- NOTE | 2021-02-28 12:48 | OP ---
SURGERY DATE/TIME: 02/27/2021 1420 PREOPERATIVE DIAGNOSIS: Incarcerated ventral hernia epigastrium. POSTOPERATIVE DIAGNOSIS: Incarcerated ventral hernia epigastrium including small umbilical hernia incarcerated also separate site. PROCEDURES: 1) Laparoscopic repair of incarcerated ventral epigastric hernia with mesh. 2) Laparoscopic repair incarcerated umbilical area hernia with suture. SURGEON: Dr. Casper Pineda. ANESTHESIA: General. ESTIMATED BLOOD LOSS: Minimal. INDICATIONS: As noted above. Risks and benefits explained in detail and not limited to and consent obtained. DESCRIPTION OF PROCEDURE AND FINDINGS: The patient is taken to the operating room. General anesthesia induced. Abdomen prepped and draped in usual sterile fashion. After official time out and no disagreement with planned procedure a transverse incision made in the left upper quadrant. Fascia grasped pulled up. Veress needle inserted and tested with saline. Pneumoperitoneum accomplished with opening pressure 0 - 15. A 5 mm bladeless port and camera inserted without difficulty followed by lower left mid abdomen 5 mm port, left lower quadrant 5 mm left lower quadrant port and right mid abdomen 5 mm port. Careful dissection of preperitoneal space accomplished down to the umbilical area. There was a small incarcerated preperitoneal fat umbilical area hernia. It was felt this would benefit from suture repair rather than using such an extensive large piece of mesh as this is very small but had some incarcerated fat in it. Incarcerated fat was pulled out of this some #1 Vicryl stay suture was placed to be tightened at the end of the procedure as this incarcerated hernia was repaired with suture only. Attention was then turned to the more symptomatic epigastric ventral hernia and this had a large amount of omental preperitoneal fat stuck up in it. It took quite some time but slowly and carefully mobilized this out but it was mobilized out and reduced. Good hemostasis noted. The site was measured. It was felt with adequate overlapping to minimize hernia recurrence. It was felt size [address] mesh was the most appropriate size mesh to use. Therefore it was carefully marked four quadrants with 0 Ethibond sutures were placed to be pulled up with transfascial sutures. It was elected to go ahead and make a small incision directly up above the hernia on the skin this allowed for transfascial #1 PDS to be used to place to bring the weakened fascia back to the midline. These were tagged temporarily with the [address] with the strap having been cut and a centering 0 Vicryl placed to be pulled up. It was carefully wettened, molded and placed in the abdomen. The PDS sutures were then closed draining the weakened area of the fascia back to the midline with the 0 Vicryl pulled up centering the circular size [address] mesh pulling it up to the abdominal wall this was with the pressure turned down to 8. Four quadrant stab wounds were made at the transfascia with 0 Ethibond transfixing the mesh transfascially at the four quadrant four stab wounds. The inferior one the umbilical hernia was also closed with #1 Vicryl closing the defect. Once this was accomplished the mesh is nice and flat in tension-free manner. The pressure had been turned down to 8 to minimize any distortion. It was then packed about 1 cm apart around the periphery with two additional tacks placed more centrally close to the fascial defect edges to reduce the risk of seromal formation. The mesh is nice and flat in tension-free manner. At this point the ports were removed and pneumoperitoneum decompressed. The preperitoneal fat pad was also allowed to fall back up against this area further buttressing away from the other structures. There were no immediate complications. 0.25% Marcaine local had been injected along the skin incision. The skin incision closed with 4-0 Vicryl. Steri-Strips and sterile dressing applied. Anesthesia applied tap blocks. She was given sterile dressing, abdominal binding and pressure dressings. She will see me back in the office next week.
== END 2021-02-27 17:25 | disposition home or self-care (01) ==
LOC: SDC 11:48
PROVIDERS: ATTEND Surgery
DX: K43.6 Other and unspecified ventral hernia with obstruction, without gangrene (principal); K42.0 Umbilical hernia with obstruction, without gangrene; E11.9 Type 2 diabetes mellitus without complications; I10 Essential (primary) hypertension; Z79.899 Other long term (current) drug therapy
CPT/HCPCS: 49653; 64488; 76937; 82947; 84703; 94640; C1781; J0690; J1170; J2250; J2704; J3010; L0625; A9270-GY

== ENCOUNTER 2021-03-15 08:00 | Day surgery (SDC) | payer OTHER ==
[2021-03-15] MEDS ORDERED: Xylocaine 1% Vial 30 ML PF IJ ONE (08:01)
[2021-03-15] MEDS ORDERED: BUPIVACAINE 0.5% VIAL IJ ONE (08:01)
[2021-03-15] MEDS ORDERED: Depo-Medrol 40 MG/ML IM ONE (08:01)
[2021-03-15] MEDS ORDERED: DIPRIVAN 200 MG/20 ML IV ONE (09:44)
--- NOTE | 2021-03-15 12:39 | XRAY ---
Indication: Right L4-S1 RFA. Intraoperative fluoroscopy provided for 20 seconds. 3 digital spot images submitted for interpretation demonstrates posterior needle tips projecting over the expected right L4-S1 nerve roots. Correlate with intraoperative findings/report.
--- NOTE | 2021-03-15 14:41 | XRAY ---
20 seconds fluoroscopy time in surgery for right L4-S1 RFA.
[2021-03-15] MEDS ORDERED: Lactated Ringers 1,000 ML IV ONE (16:33)
== END 2021-03-15 10:15 | disposition home or self-care (01) ==
LOC: SDC-PAIN 08:00
PROVIDERS: ATTEND Psychiatry & Neurology Pain Medicine
DX: M47.816 Spondylosis without myelopathy or radiculopathy, lumbar region (principal); E11.9 Type 2 diabetes mellitus without complications; Z79.899 Other long term (current) drug therapy
CPT/HCPCS: 64635; 64636; 72100; 77002; 82947; 84703; J1030; J2001; J2704

== ENCOUNTER 2021-04-05 07:43 | Day surgery (SDC) | payer OTHER ==
[2021-04-05] MEDS ORDERED: Depo-Medrol 40 MG/ML IM ONE (07:44)
[2021-04-05] MEDS ORDERED: BUPIVACAINE 0.5% VIAL IJ ONE (07:44)
[2021-04-05] MEDS ORDERED: Xylocaine 1% Vial 30 ML PF IJ ONE (07:44)
[2021-04-05] MEDS ORDERED: Ketamine HCl 50 MG/ML ONE (09:55)
[2021-04-05] MEDS ORDERED: DIPRIVAN 200 MG/20 ML IV ONE (09:56)
[2021-04-05] MEDS ORDERED: Lactated Ringers 1,000 ML IV ONE (10:01)
--- NOTE | 2021-04-05 10:54 | XRAY ---
Indication: Left L4-S1 RFA. Intraoperative fluoroscopy provided for 27 seconds. 3 digital spot images submitted for interpretation demonstrates posterior needle tips projecting over the expected left L4-S1 nerve roots. Correlate with intraoperative findings/report.
--- NOTE | 2021-04-05 13:06 | XRAY ---
27 seconds of fluoroscopy was used in surgery for a left L4-S1 RFA.
== END 2021-04-05 10:33 | disposition home or self-care (01) ==
LOC: SDC-PAIN 07:43
PROVIDERS: ATTEND Psychiatry & Neurology Pain Medicine
DX: M47.816 Spondylosis without myelopathy or radiculopathy, lumbar region (principal); E11.9 Type 2 diabetes mellitus without complications; Z79.899 Other long term (current) drug therapy
CPT/HCPCS: 64635; 64636; 72100; 77002; 82947; 84703; J1030; J2001; J2704

== ENCOUNTER 2021-04-26 08:17 | Day surgery (SDC) | payer OTHER ==
[2021-04-26] MEDS ORDERED: BUPIVACAINE 0.5% VIAL IJ ONE (08:18)
[2021-04-26] MEDS ORDERED: Depo-Medrol 40 MG/ML IM ONE (08:18)
[2021-04-26] MEDS ORDERED: DIPRIVAN 200 MG/20 ML IV ONE (09:06)
[2021-04-26] MEDS ORDERED: Lactated Ringers 1,000 ML IV ONE (16:10)
--- NOTE | 2021-04-27 11:19 | XRAY ---
7 seconds fluoroscopy time in surgery for intra-articular injection of the left knee.
--- NOTE | 2021-04-27 12:18 | XRAY ---
Indication: Intra-articular left knee injection. Intra-operative fluoroscopy was provided for 7 seconds. A single digital spot image was submitted for interpretation demonstrates a needle tip projected over the left femur intercondylar notch. A small amount of contrast has been injected for needle tip placement. Correlate with intraoperative findings/report.
== END 2021-04-26 09:48 | disposition home or self-care (01) ==
LOC: SDC-PAIN 08:17
PROVIDERS: ATTEND Psychiatry & Neurology Pain Medicine
DX: M17.12 Unilateral primary osteoarthritis, left knee (principal); E11.9 Type 2 diabetes mellitus without complications; Z79.899 Other long term (current) drug therapy
CPT/HCPCS: 20610; 73560; 77002; 82947; 84703; J1030; J2704; Q9966

== ENCOUNTER 2021-07-20 08:05 | Emergency (ER) | payer OTHER ==
[2021-07-20 08:16] VITALS: PULSE 56; O2SAT 96
--- NOTE | 2021-07-20 08:24 | ERPHSYRPT ---
- History of Present Illness Time Seen by Provider: 07/20/21 08:15 Source: patient Exam Limitations: no limitations Patient Subjective Stated Complaint: pt here for left lower leg pain after bowling last night, she states she went to throw the ball and then her leg started hurting, Triage Nursing Assessment: pt alert, arrived per wc, resp easy , face mask in place, no swelling or bruising noted to left leg, is tender to touch Physician History: This is a 51-year-old diabetic white female patient of Dr. Moreno who also has elevated cholesterol and hypertension who presents with sudden onset of left calf pain while bowling last night. There is also associated swelling of the left calf. She is able to bear weight. She felt a pop and pulling sensation in the left calf while bowling. Patient sees a pain specialist, Dr. Pruitt. Patient has no recent flight travel or long distance travel in the vehicle. She has no cough, denies hemoptysis and has no chest pain or shortness of breath. Method of Injury: sports injury Occurred: yesterday Quality: constant, aching, cramping Lower Extremities Pain: leg: left (Lower leg/calf) Modifying Factors: Improves With: movement Associated Symptoms: other (Hurts to bear weight but can do so.) Allergies/Adverse Reactions: sumatriptan [From Imitrex] Allergy (Verified 07/20/21 08:16) Hives Home Medications: Atorvastatin Calcium [Lipitor] 20 mg PO DAILY 12/10/16 [History] Sitagliptin Phosphate 50 MG [Januvia 50 MG] 100 mg PO DAILY 12/10/16 [History] Dapagliflozin Propanediol [Farxiga] 10 mg PO DAILY 02/17/21 [History] Ergocalciferol (Vitamin D2) [Vitamin D] 50,000 unit PO WEEKLY 02/17/21 [History] Ezetimibe 10 mg [Zetia 10 MG] 10 mg PO DAILY 02/17/21 [History] Liraglutide [Victoza 2-Jose] 1.8 mg SQ DAILY 02/17/21 [History] Lisinopril 10 mg [Zestril 10 MG] 10 mg PO DAILY 02/17/21 [History] Loratadine 10 mg [Claritin 10 mg] 10 mg PO DAILY 02/17/21 [History] Semaglutide [Ozempic] 1 mg SQ WEEKLY 02/17/21 [History] Tamoxifen Citrate 20 mg PO DAILY 02/17/21 [History] Triamterene/Hydrochlorothiazid [Triamterene-Hctz 37.5-25 mg Tb] 1 each PO DAILY 02/17/21 [History] Hx Tetanus, Diphtheria Vaccination/Date Given: No Hx Influenza Vaccination/Date Given: Yes Hx Pneumococcal Vaccination/Date Given: Yes Immunizations Up to Date: Yes Travel Risk - International Travel Have you traveled outside of the country in past 3 weeks: No - Coronavirus Screening Are you exhibiting any of the following symptoms?: No - Vaccine Status Have you recieved a Covid-19 vaccination: Yes [employer]: [employer] - Vaccination Dates Date of 2cond Vaccination (if applicable): ? - Review of Systems Constitutional: No Symptoms Eyes: No Symptoms Ears, Nose, & Throat: No Symptoms Respiratory: No Symptoms Cardiac: No Symptoms Abdominal/Gastrointestinal: No Symptoms Genitourinary Symptoms: No Symptoms Musculoskeletal: Other (Left calf pain and swelling) Skin: No Symptoms Neurological: No Symptoms Psychological: No Symptoms Endocrine: No Symptoms Hematologic/Lymphatic: No Symptoms Immunological/Allergic: No Symptoms All Other Systems: Reviewed and Negative - Past Medical History Pertinent Past Medical History: Yes Neurological History: No Pertinent History ENT History: No Pertinent History Cardiac History: High Cholesterol, Hypertension Respiratory History: Asthma, Bronchitis Endocrine Medical History: Diabetes Type II, Other Musculoskeletal History: Arthritis GI Medical History: No Pertinent History History: No Pertinent History Psycho-Social History: No Pertinent History, Depression Female Reproductive Disorders: No Pertinent History Other Medical History: Kidney Disease - Past Surgical History Past Surgical History: Yes Neuro Surgical History: No Pertinent History Cardiac: No Pertinent History Respiratory: No Pertinent History Gastrointestinal: Cholecystectomy Genitourinary: No Pertinent History Musculoskeletal: Orthopedic Surgery Female Surgical History: Section, Tubal Ligation Other Surgical History: Carpal tunnel on right hand 1993. left knee surgery. hx back injecti - Social History Smoking Status: Current every day smoker How long have you smoked: 25 Exposure to second hand smoke: Yes Drug Use: none Patient Lives Alone: No - Female History Hx Last Menstrual Period: post Hx Now: No - Nursing Vital Signs Nursing Vital Signs: Initial Vital Signs Temperature 97.4 F 07/20/21 08:11 Pulse Rate 56 L 07/20/21 08:11 Respiratory Rate 18 07/20/21 08:11 Blood Pressure 131/76 07/20/21 08:11 O2 Sat by Pulse Oximetry 96 07/20/21 08:11 Pain Scale Pain Intensity 8 - Physical Exam General Appearance: no apparent distress, alert, anxiety, obese Eyes, Ears, Nose, Throat Exam: normal ENT inspection, moist mucous membranes Neck Exam: normal inspection, non-tender, supple, full range of motion Cardiovascular/Respiratory Exam: chest non-tender, no respiratory distress Gastrointestinal/Abdominal Exam: non-tender Back Exam: normal inspection, normal range of motion, No CVA tenderness, No vertebral tenderness Hips Exam: bilateral: non-tender, normal inspection, normal range of motion, no evidence of injury Legs Exam: right leg: non-tender, normal inspection, no evidence of injury, left leg: soft tissue tenderness (Left calf), swelling (Left calf), bilateral leg: normal range of motion Knees Exam: bilateral knee: non-tender, normal inspection, normal range of motion, no evidence of injury Ankle Exam: bilateral ankle: non-tender, normal inspection, normal range of motion, no evidence of injury Foot Exam: bilateral foot: non-tender, normal inspection, normal range of motion, no evidence of injury SpO2: 96 - Course Nursing assessment & vital signs reviewed: Yes Ordered Tests: Active Orders 24 hr Category Date Time Status LOWER EXTREMITY WO CONTRAST [CT] Stat Exams 07/20/21 08:25 Completed D-DIMER QUANTITATIVE Stat Lab 07/20/21 09:20 Completed Lab/Rad Data: Laboratory Results 07/20/21 Range/Units 09:20 D-Dimer 357 (215-500) ng/mL - Progress Progress: unchanged, pain not gone completely Progress Note: 07/20/21 09:12 CAT scan of the left lower leg without contrast shows no acute soft tissue or bony abnormality. Counseled pt/family regarding: lab results, diagnosis, need for follow-up, rad results - Departure Departure Disposition: Home Clinical Impression: Pain of left calf Condition: Stable Critical Care Time: No Referrals: MEGHAN MORENO [Primary Care Provider] - Follow up/PCP as directed Additional Instructions: Ice pack to the left calf area 3 times a day for the next 48 hours. In between the ice pack may massage the calf. Use your pain medicine for pain control. If you are out of your pain medicine contact your pain specialist. After 48 hours may alternate ice and heat to the area stretching and massaging the calf several times daily. Follow-up with your primary care physician for further management. Prescriptions: Orphenadrine Citrate 100 mg [Norflex 100 MG Tablet] 100 mg PO BID #10 tab
--- NOTE | 2021-07-20 09:08 | XRAY ---
Indication: Calf pain and swelling. Multiple contiguous axial images obtained through the left lower leg without contrast to include the knee and ankle. Cutaneous BB placed over region of interest. Comparison: None Posterior cutaneous BB is seen in the proximal third lower leg. No underlying solid/cystic mass or fluid collection. Muscles are unremarkable for noncontrast exam. Anterior lower leg demonstrates a few subcutaneous calcified granulomas. Remaining visualized noncontrasted soft tissues are unremarkable. Tibia/fibula intact without suspicious bony lesions. Knee and ankle joint intact. Tiny nonspecific knee effusion. Incidental 1.5 x 2.3 x 3.0 cm Paredes's cyst interposed between the semimembranosus tendon and medial gastrocnemius muscle. Impression: 1. No soft tissue abnormality corresponding to patient's calf pain/swelling on this noncontrast exam. 2. Incidental tiny nonspecific knee effusion, small Paredes's cyst, and tiny anterior lower leg subcutaneous calcified granulomas. 3. Remaining CT left lower leg without contrast exam is negative.
[2021-07-20 10:10] VITALS: BP 115/73
== END 2021-07-20 10:09 | disposition home or self-care (01) ==
LOC: ED 08:05
DX: M79.662 Pain in left lower leg (principal); Y93.54 Activity, bowling; E78.5 Hyperlipidemia, unspecified; I10 Essential (primary) hypertension; E11.8 Type 2 diabetes mellitus with unspecified complications; Z79.899 Other long term (current) drug therapy; Z79.84 Long term (current) use of oral hypoglycemic drugs; Z72.0 Tobacco use
CPT/HCPCS: 36415; 73700; 85379; 99284

== ENCOUNTER 2021-07-30 15:08 | Emergency (ER) | payer OTHER ==
--- NOTE | 2021-07-30 15:22 | ERPHSYRPT ---
- History of Present Illness Time Seen by Provider: 07/30/21 15:22 Source: patient Physician History: This is a 51-year-old right-handed diabetic white female who also has hypertension and elevated cholesterol, who noticed some redness swelling and tenderness on the ulnar side of her second cuticle. She thought maybe she had a foreign body in that area and used various metal instruments that were sharp to try to see if she could get the foreign body out or pass out. She did not. In the last 2 to 3 days it has increased in redness and swelling. It also increased in tenderness. The patient has not noticed any fevers or chills. She does not want to be out of work. Occurred: days ago (2-3) Method of Injury: unknown Quality: constant, aching, throbbing Severity of Pain-Max: mild (To moderate) Severity of Pain-Current: mild (To moderate) Extremities Pain Location: 2nd finger: left (Dorsal/ulnar aspect left second cuticle) Modifying Factors: Improves With: nothing Associated Symptoms: none Allergies/Adverse Reactions: sumatriptan [From Imitrex] Allergy (Verified 07/30/21 15:26) Hives Home Medications: Atorvastatin Calcium [Lipitor] 20 mg PO DAILY 12/10/16 [History] Sitagliptin Phosphate 50 MG [Januvia 50 MG] 100 mg PO DAILY 12/10/16 [History] Dapagliflozin Propanediol [Farxiga] 10 mg PO DAILY 02/17/21 [History] Ergocalciferol (Vitamin D2) [Vitamin D] 50,000 unit PO WEEKLY 02/17/21 [History] Ezetimibe 10 mg [Zetia 10 MG] 10 mg PO DAILY 02/17/21 [History] Liraglutide [Victoza 2-Jose] 1.8 mg SQ DAILY 02/17/21 [History] Lisinopril 10 mg [Zestril 10 MG] 10 mg PO DAILY 02/17/21 [History] Loratadine 10 mg [Claritin 10 mg] 10 mg PO DAILY 02/17/21 [History] Semaglutide [Ozempic] 1 mg SQ WEEKLY 02/17/21 [History] Tamoxifen Citrate 20 mg PO DAILY 02/17/21 [History] Triamterene/Hydrochlorothiazid [Triamterene-Hctz 37.5-25 mg Tb] 1 each PO DAILY 02/17/21 [History] Hx Tetanus, Diphtheria Vaccination/Date Given: No Hx Influenza Vaccination/Date Given: Yes Hx Pneumococcal Vaccination/Date Given: Yes Travel Risk - International Travel Have you traveled outside of the country in past 3 weeks: No - Coronavirus Screening Are you exhibiting any of the following symptoms?: No Close contact with a COVID-19 positive Pt in past 14-21 Days: No - Vaccine Status Have you recieved a Covid-19 vaccination: Yes [employer]: [employer] - Vaccination Dates Date of 2cond Vaccination (if applicable): ? - Review of Systems Constitutional: No Symptoms Eyes: No Symptoms Ears, Nose, & Throat: No Symptoms Respiratory: No Symptoms Cardiac: No Symptoms Abdominal/Gastrointestinal: No Symptoms Genitourinary Symptoms: No Symptoms Musculoskeletal: No Symptoms Skin: Other (Localized area of redness, induration and small abscess dorsal lateral aspect second cuticle on the left hand) Neurological: No Symptoms Psychological: No Symptoms Endocrine: No Symptoms Hematologic/Lymphatic: No Symptoms Immunological/Allergic: No Symptoms All Other Systems: Reviewed and Negative - Past Medical History Pertinent Past Medical History: Yes Neurological History: No Pertinent History ENT History: No Pertinent History Cardiac History: High Cholesterol, Hypertension Respiratory History: Asthma, Bronchitis Endocrine Medical History: Diabetes Type II, Other Musculoskeletal History: Arthritis GI Medical History: No Pertinent History History: No Pertinent History Psycho-Social History: No Pertinent History, Depression Female Reproductive Disorders: No Pertinent History Other Medical History: Kidney Disease - Past Surgical History Past Surgical History: Yes Neuro Surgical History: No Pertinent History Cardiac: No Pertinent History Respiratory: No Pertinent History Gastrointestinal: Cholecystectomy Genitourinary: No Pertinent History Musculoskeletal: Orthopedic Surgery Female Surgical History: Section, Tubal Ligation Other Surgical History: Carpal tunnel on right hand 1993. left knee surgery. hx back injecti - Social History Smoking Status: Current every day smoker How long have you smoked: 25 Exposure to second hand smoke: Yes Drug Use: none Patient Lives Alone: No - Nursing Vital Signs Nursing Vital Signs: Initial Vital Signs Temperature 97.2 F 07/30/21 15:16 Pulse Rate 86 07/30/21 15:16 Respiratory Rate 18 07/30/21 15:16 Blood Pressure 147/103 07/30/21 15:16 O2 Sat by Pulse Oximetry 97 07/30/21 15:16 Pain Scale Pain Intensity 4 - Physical Exam General Appearance: no apparent distress, alert, anxiety Eyes, Ears, Nose, Throat Exam: normal ENT inspection, moist mucous membranes Neck Exam: normal inspection, non-tender, supple, full range of motion Cardiovascular/Respiratory Exam: chest non-tender, no respiratory distress Abdominal Exam: non-tender Back Exam: normal inspection, normal range of motion, No CVA tenderness, No vertebral tenderness Shoulder Exam: normal inspection, non-tender, no evidence of injury, normal ROM Elbow/Forearm Exam: normal inspection, non-tender, no evidence of injury, normal ROM Wrist Exam: normal inspection, non-tender, no evidence of injury, normal ROM Hand Exam: infection (Left hand dorsal/ulnar aspect second cuticle abscess. No evidence of proximal streaking.), soft tissue tenderness, swelling Neuro/Tendon Exam: normal sensation, normal motor functions, normal tendon functions, no evidence tendon injury Mental Status Exam: alert, oriented x 3, cooperative Skin Exam: other (Abscess as listed above) SpO2 Interpretation: normal O2 Delivery: Room Air Procedures - Incision and Drainage Time of Procedure: 15:40 Site: Left second finger dorsal ulnar aspect cuticle Anesthesia: 1% Lidocaine cc's of anesthesia: other (1.5) Blade Size: 15 I & D Procedure: betadine prep, culture obtained, irrigated with normal saline Results: small amount pus - Course Nursing assessment & vital signs reviewed: Yes Ordered Tests: Active Orders 24 hr Category Date Time Status CULTURE,WOUND Stat Lab 07/30/21 15:55 Results Medication Summary Discontinued Medications Generic Name Dose Route Start Last Admin Trade Name Zac PRN Reason Stop Dose Admin Ceftriaxone Sodium 1,000 mg 07/30/21 15:55 07/30/21 16:36 Ceftriaxone Sodium 1000 Mg Inj Vial IM 07/30/21 15:56 1,000 mg STAT ONE Administration Ceftriaxone Sodium Confirm 07/30/21 16:17 Ceftriaxone Sodium 1000 Mg Inj Vial Administered 07/30/21 16:18 Dose 1,000 mg .ROUTE .STK-MED ONE Lidocaine HCl Confirm 07/30/21 16:17 Lidocaine Hcl 1% 20 Ml Mdv 20 Ml Ml Administered 07/30/21 16:18 Dose 3 ml .ROUTE .STK-MED ONE Trimethoprim/Sulfamethoxazole 1 tab 07/30/21 15:55 07/30/21 16:36 Smz/Tmp Ds Tablet 1 Tablet PO 07/30/21 15:56 1 tab STAT ONE Administration Trimethoprim/Sulfamethoxazole Confirm 07/30/21 16:17 Smz/Tmp Ds Tablet 1 Tablet Administered 07/30/21 16:18 Dose 1 tab PO .STK-MED ONE - Progress Progress: improved Counseled pt/family regarding: diagnosis, need for follow-up - Departure Departure Disposition: Home Clinical Impression: Abscess of left index finger Condition: Stable Critical Care Time: No Referrals: MEGHAN ANDREWS [Primary Care Provider] - Follow up/PCP as directed Instructions: Wound Incision and Drainage Additional Instructions: Keep current dressing in place for 24 hours. After 24 hours may remove dressing and soak the hand twice a day in warm Epsom salts. Do not use any lotions ointments or creams. Cover the site after each soaking and drying with a bandage. If you are going to work, then cover with bandage and gloves take your antibiotics as prescribed. Prescriptions: Smz/Tmp Ds Tablet [Bactrim Ds Tablet] 1 udtab PO BID #14 tablet
[2021-07-30 15:26] VITALS: O2SAT 97
[2021-07-30] MEDS ORDERED: Rocephin 1000 MG INJ IM ONE (15:55)
[2021-07-30] MEDS ORDERED: BACTRIM DS TABLET PO ONE ×2 (15:55→16:17)
[2021-07-30] MEDS ORDERED: XYLOCAINE 1% HCL 20 ML MDV ONE (16:17)
[2021-07-30] MEDS ORDERED: Rocephin 1000 MG INJ ONE (16:17)
[2021-07-30 17:47] VITALS: BP 138/98; PULSE 81
== END 2021-07-30 17:47 | disposition home or self-care (01) ==
LOC: ED 15:08
DX: L03.012 Cellulitis of left finger (principal); E78.5 Hyperlipidemia, unspecified; I12.9 Hypertensive chronic kidney disease with stage 1 through stage 4 chronic kidney disease, or unspecified chronic kidney disease; E11.22 Type 2 diabetes mellitus with diabetic chronic kidney disease; N18.9 Chronic kidney disease, unspecified; Z72.0 Tobacco use; Z79.899 Other long term (current) drug therapy; Z79.84 Long term (current) use of oral hypoglycemic drugs
CPT/HCPCS: 26010; 87070; 87077; 87186; 96372; 99284; J0696; A9270-GY

== ENCOUNTER 2021-08-23 08:25 | Day surgery (SDC) | payer OTHER ==
[2021-08-23] MEDS ORDERED: Depo-Medrol 40 MG/ML IM ONE (08:26)
[2021-08-23] MEDS ORDERED: BUPIVACAINE 0.5% VIAL IJ ONE (08:26)
[2021-08-23 09:13] LABS: Absolute Neutrophil Ct (ANC) 5.26 (1.4-6.9); Basophil (Absolute #) 0.02 (0-0.4); Eosinophil (Absolute #) 0.45 (0-0.5); Hematocrit 50.7 % (35-47); Hemoglobin 16.7 gm/dl (12.0-16.0); Lymphocyte (Absolute #) 2.59 (1.0-4.6); Mean Cell Volume 91.7 fl (78-100); Mean Corpuscular Hemoglobin 30.2 pg (26-32); Mean Corpuscular Hgb Concent. 32.9 g/dl (32-36); Mean Platelet Volume 10.1 fl (7.5-11.0); Monocyte (Absolute #) 0.62 (0.0-1.3); Monocytes % 6.9 % (0.0-12.0); Neutrophil % 58.9 % (36.0-66.0); Platelet Count 233 K/mm3 (150-450); Red Blood Count 5.53 M/mm3 (4.1-5.4); Red Cell Distribution Width 14.8 % (11.5-14.0); White Blood Count 8.9 K/mm3 (4.0-10.5)
[2021-08-23] MEDS ORDERED: DIPRIVAN 200 MG/20 ML IV ONE (09:50)
[2021-08-23] MEDS ORDERED: Lactated Ringers 1,000 ML IV ONE (10:11)
[2021-08-23 10:20] LABS: Creatinine Urine 70.8 mg/dL
[2021-08-23 11:27] LABS: ALBUMIN 4.2 g/dL (3.5-5.0); ANION GAP 15.3 MEQ/L (5-15); BILIRUBIN,TOTAL 0.7 mg/dL (0.2-1.3); Calcium 9.1 mg/dL (8.4-10.2); Creatinine 1 1.05 mg/dL (0.52-1.04); Potassium 4.2 mmol/L (3.5-5.1); Risk Ratio 3.9; TSH, 3RD Generation 2.08 mIU/L (0.47-4.68); Total Protein 7.2 g/dL (6.3-8.2)
--- NOTE | 2021-08-23 11:41 | XRAY ---
Indication: Right SI joint injection. Intraoperative fluoroscopy provided for 13 seconds. 2 digital spot image submitted for interpretation demonstrates posterior needle tip projecting over the inferior right SI joint. Correlate with intraoperative findings/report.
--- NOTE | 2021-08-23 11:43 | XRAY ---
13 seconds of fluoroscopy was used in surgery for a right sacroiliac joint injection.
== END 2021-08-23 10:13 | disposition home or self-care (01) ==
LOC: SDC-PAIN 08:25
PROVIDERS: ATTEND Psychiatry & Neurology Pain Medicine
DX: M46.1 Sacroiliitis, not elsewhere classified (principal); I10 Essential (primary) hypertension; E11.9 Type 2 diabetes mellitus without complications; E78.5 Hyperlipidemia, unspecified; Z79.899 Other long term (current) drug therapy
CPT/HCPCS: 27096; 36415; 72020; 77002; 80053; 80061; 82043; 82306; 82947; 83036; 83721; 84443; 84703; 85025; G0260; J1030; J2704

== ENCOUNTER 2021-09-27 06:44 | Day surgery (SDC) | payer OTHER ==
[2021-09-27] MEDS ORDERED: Depo-Medrol 40 MG/ML IM ONE (06:45)
[2021-09-27] MEDS ORDERED: BUPIVACAINE 0.5% VIAL IJ ONE (06:45)
[2021-09-27] MEDS ORDERED: Xylocaine 1% Vial 30 ML PF IJ ONE (06:45)
[2021-09-27] MEDS ORDERED: DIPRIVAN 200 MG/20 ML IV ONE (08:21)
[2021-09-27] MEDS ORDERED: Lactated Ringers 1,000 ML IV ONE (09:03)
--- NOTE | 2021-09-27 10:24 | XRAY ---
Indication: Bilateral hip injections. Intraoperative fluoroscopy provided for 41 seconds. 2 digital spot images submitted for interpretation demonstrates needle tip projecting lateral to the left and right femur necks Small amount of contrast injected for both needle tip placement. Correlate with intraoperative findings/report.
--- NOTE | 2021-09-27 10:33 | XRAY ---
41 seconds fluoroscopy time in surgery for bilateral intra-articular injections of both hips.
== END 2021-09-27 08:51 | disposition home or self-care (01) ==
LOC: SDC-PAIN 06:44
PROVIDERS: ATTEND Psychiatry & Neurology Pain Medicine
DX: M16.0 Bilateral primary osteoarthritis of hip (principal); Z79.899 Other long term (current) drug therapy
CPT/HCPCS: 20610; 36415; 73521; 77002; 81025; 82947; J1030; J2001; J2704; Q9966

== ENCOUNTER 2021-12-20 08:40 | Day surgery (SDC) | payer OTHER ==
[2021-12-20] MEDS ORDERED: Marcaine Mpf 0.5% Vial 30 Ml IJ ONE (08:41)
[2021-12-20] MEDS ORDERED: Depo-Medrol 40 MG/ML IM ONE (08:41)
[2021-12-20] MEDS ORDERED: DIPRIVAN 200 MG/20 ML IV ONE (09:57)
[2021-12-20] MEDS ORDERED: Lactated Ringers 1,000 ML IV ONE (10:38)
--- NOTE | 2021-12-20 10:45 | XRAY ---
Indication: Bilateral SI joint and bilateral hip injections. Intraoperative fluoroscopy provided for 37 seconds. 6 digital spot image submitted for interpretation demonstrates posterior needle tip projecting over the inferior left and right SI joint. Additional needle tips projecting lateral to the left and right femur necks with small amount of contrast injected for needle tip placement. Correlate with intraoperative findings/report.
--- NOTE | 2021-12-20 11:36 | XRAY ---
37 seconds of fluoroscopy was used in surgery for bilateral SI joint and bilateral intra-articular hip injections.
== END 2021-12-20 10:25 | disposition home or self-care (01) ==
LOC: SDC-PAIN 08:40
PROVIDERS: ATTEND Psychiatry & Neurology Pain Medicine
DX: M46.1 Sacroiliitis, not elsewhere classified (principal); M16.0 Bilateral primary osteoarthritis of hip; E11.9 Type 2 diabetes mellitus without complications; Z79.899 Other long term (current) drug therapy
CPT/HCPCS: 20610; 27096; 73522; 77002; 82947; 84703; G0260; J1030; J2704; Q9966

== ENCOUNTER 2022-05-09 17:25 | Emergency (ER) | payer BC, OTHER ==
[2022-05-09 17:48] VITALS: O2SAT 100
--- NOTE | 2022-05-09 17:49 | ERPHSYRPT ---
- History of Present Illness Time Seen by Provider: 05/09/22 17:49 Source: patient Exam Limitations: no limitations Patient Subjective Stated Complaint: dizziness Triage Nursing Assessment: Patient ambulated back to ED and transferred self to bed. Patient A+O X 3. Patient's skin pink, warm and dry. Patient complains of dizziness that started today at 1300. Patient complains of being lightheaded, dizzy and tingling throughout body. Patient denies pain or discomfort or N/V. Physician History: This is a 51-year-old white female patient of Dr. Moreno who at about 1:00 this afternoon began having some dizziness. She denies pain and she denies nausea vomiting. She said that she is got lightheadedness, dizziness and generalized "tingling" sensation. She did state that she has felt off since yesterday. Patient has a history of hypertension, hyperlipidemia, diabetes, arthritis and has chronic kidney disease. Patient said that she did start a new medication but this was about 3 weeks ago to help her lose some weight. Timing/Duration: today Severity: moderate Character of Deficits: none Deficits: no difficulties Baseline/Normal Cognition: alert oriented x 3 Current Cognition: alert oriented x 3 Baseline Gait: walks w/o assistance Associated Symptoms: weakness, numbness/tingling in legs/feet, other (Dizziness) Allergies/Adverse Reactions: sumatriptan [From Imitrex] Allergy (Verified 05/09/22 17:43) Hives Home Medications: Atorvastatin Calcium [Lipitor] 20 mg PO DAILY 12/10/16 [History] Sitagliptin Phosphate 50 MG [Januvia 50 MG] 100 mg PO DAILY 12/10/16 [History] Dapagliflozin Propanediol [Farxiga] 10 mg PO DAILY 02/17/21 [History] Ergocalciferol (Vitamin D2) [Vitamin D] 50,000 unit PO WEEKLY 02/17/21 [History] Ezetimibe 10 mg [Zetia 10 MG] 10 mg PO DAILY 02/17/21 [History] Liraglutide [Victoza 2-Jose] 1.8 mg SQ DAILY 02/17/21 [History] Lisinopril 10 mg [Zestril 10 MG] 10 mg PO DAILY 02/17/21 [History] Loratadine 10 mg [Claritin 10 mg] 10 mg PO DAILY 02/17/21 [History] Semaglutide [Ozempic] 1 mg SQ WEEKLY 02/17/21 [History] Tamoxifen Citrate 20 mg PO DAILY 02/17/21 [History] Triamterene/Hydrochlorothiazid [Triamterene-Hctz 37.5-25 mg Tb] 1 each PO DAILY 02/17/21 [History] Hx Tetanus, Diphtheria Vaccination/Date Given: No Hx Influenza Vaccination/Date Given: Yes Hx Pneumococcal Vaccination/Date Given: Yes Immunizations Up to Date: Yes Travel Risk - International Travel Have you traveled outside of the country in past 3 weeks: No - Coronavirus Screening Are you exhibiting any of the following symptoms?: No Close contact with a COVID-19 positive Pt in past 14-21 Days: No - Vaccine Status Have you recieved a Covid-19 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 Dates if Unknown: unk - Review of Systems Constitutional: No Symptoms Eyes: No Symptoms Ears, Nose, & Throat: No Symptoms Respiratory: No Symptoms Cardiac: No Symptoms Abdominal/Gastrointestinal: No Symptoms Genitourinary Symptoms: No Symptoms Musculoskeletal: No Symptoms Neurological: Dizziness, Parasthesia (Embolized) Psychological: No Symptoms Endocrine: No Symptoms Hematologic/Lymphatic: No Symptoms Immunological/Allergic: No Symptoms All Other Systems: Reviewed and Negative - Past Medical History Pertinent Past Medical History: Yes Neurological History: No Pertinent History ENT History: No Pertinent History Cardiac History: High Cholesterol, Hypertension Respiratory History: Asthma, Bronchitis Endocrine Medical History: Diabetes Type II, Other Musculoskeletal History: Arthritis GI Medical History: No Pertinent History History: No Pertinent History Psycho-Social History: No Pertinent History, Depression Female Reproductive Disorders: No Pertinent History Other Medical History: Kidney Disease - Past Surgical History Past Surgical History: Yes Neuro Surgical History: No Pertinent History Cardiac: No Pertinent History Respiratory: No Pertinent History Gastrointestinal: Cholecystectomy Genitourinary: No Pertinent History Musculoskeletal: Orthopedic Surgery Female Surgical History: Section, Tubal Ligation Other Surgical History: Carpal tunnel on right hand 1992. left knee surgery. hx back injecti - Social History Smoking Status: Current every day smoker How long have you smoked: years Exposure to second hand smoke: Yes Drug Use: none Patient Lives Alone: No - Nursing Vital Signs Nursing Vital Signs: Initial Vital Signs Temperature 97.6 F 05/09/22 17:43 Pulse Rate 101 H 05/09/22 17:43 Respiratory Rate 19 05/09/22 17:43 Blood Pressure 122/67 05/09/22 17:43 O2 Sat by Pulse Oximetry 100 05/09/22 17:43 Pain Scale Pain Intensity 0 - Angel Coma Scale Best Eye Response (Hilger): (4) open spontaneously Best Verbal Response (Angel): (5) oriented Best Motor Response (Hilger): (6) obeys commands Angel Total: 15 - Physical Exam General Appearance: no apparent distress, alert, anxiety Eye Exam: bilateral eye: normal inspection, PERRL, EOMI Ears, Nose, Throat Exam: normal ENT inspection, moist mucous membranes Neck Exam: normal inspection, non-tender, supple, full range of motion Respiratory: normal breath sounds, lungs clear, airway intact, No chest tenderness, No respiratory distress Cardiovascular: regular rate/rhythm, normal heart sounds, normal peripheral pulses Gastrointestinal: soft, normal bowel sounds, No tenderness Pelvic Exam: not done Rectal Exam: not done Back Exam: normal inspection, normal range of motion, No CVA tenderness, No vertebral tenderness Extremity Exam: normal inspection, normal range of motion, pelvis stable Mental Status: alert, oriented x 3, 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 Exam: normal hearing, normal speech, PERRL, tongue midline Coordination/Gait: normal finger to nose, normal gait, normal cerebellar function Motor/Sensory: no motor deficit, no sensory deficit, no pronator drift Skin Exam: normal color, warm, dry SpO2 Interpretation: normal SpO2: 100 O2 Delivery: Room Air - Course Nursing assessment & vital signs reviewed: Yes EKG Interpreted by Me: RATE (97), Sinus Rhythm, NORMAL AXIS, NORMAL INTERVALS, NORMAL QRS, NORMAL ST-T, Other (No acute ischemic changes.) Ordered Tests: Active Orders 24 hr Category Date Time Status Wet Process Technician STAT Care 05/09/22 18:15 Active EKG-ER Only STAT Care 05/09/22 18:15 Active IV Insertion STAT Care 05/09/22 18:15 Active HEAD WITHOUT CONTRAST [CT] Stat Exams 05/09/22 18:15 Taken CBC W DIFF Stat Lab 05/09/22 18:15 Completed CMP Stat Lab 05/09/22 18:15 Completed CULTURE,URINE Stat Lab 05/09/22 18:22 Received MAGNESIUM Stat Lab 05/09/22 18:15 Completed TROPONIN Q4H Lab 05/09/22 18:15 Completed TROPONIN Q4H Lab 05/09/22 22:15 Ordered TROPONIN Q4H Lab 05/10/22 02:15 Ordered UA W/RFX CULTURE Stat Lab 05/09/22 18:22 Completed Lab/Rad Data: Laboratory Result Diagrams 05/09/22 18:15 05/09/22 18:15 Laboratory Results 05/09/22 05/09/22 05/09/22 Range/Units 18:22 18:15 18:15 WBC 10.0 (4.0-10.5) x10^3/uL RBC 5.68 H (4.1-5.4) x10^6/uL Hgb 17.1 H (12.0-16.0) g/dL Hct 49.5 H (35-47) % MCV 87.1 (78-100) fL MCH 30.1 (26-32) pg MCHC 34.5 (32-36) g/dL RDW 14.1 H (11.5-14.0) % Plt Count 273 (150-450) x10^3/uL MPV 10.5 (7.5-11.0) fL Gran % 52.6 (36.0-66.0) % Immature Gran % (Auto) 0.4 (0.00-0.4) % Nucleat RBC Rel Count 0.0 (0.00-0.1) % Eos # (Auto) 0.26 (0-0.5) x10^3/uL Immature Gran # (Auto) 0.04 H (0.00-0.03) x10^3u/L Absolute Lymphs (auto) 3.69 (1.0-4.6) x10^3/uL Absolute Monos (auto) 0.72 (0.0-1.3) x10^3/uL Absolute Nucleated RBC 0.00 (0.00-0.01) x10^3u/L Lymphocytes % 36.8 (24.0-44.0) % Monocytes % 7.2 (0.0-12.0) % Eosinophils % 2.6 (0.00-5.0) % Basophils % 0.4 (0.0-0.4) % Absolute Granulocytes 5.27 (1.4-6.9) x10^3/uL Basophils # 0.04 (0-0.4) x10^3/uL Sodium 137 (137-145) mmol/L Potassium 4.0 (3.5-5.1) mmol/L Chloride 101 (98-107) mmol/L Carbon Dioxide 26 (22-30) mmol/L Anion Gap 14.0 (5-15) MEQ/L BUN 25 H (7-17) mg/dL Creatinine 1.97 H (0.52-1.04) mg/dL Estimated GFR 28.5 ML/MIN Glucose 104 (74-106) mg/dL Calcium 9.8 (8.4-10.2) mg/dL Magnesium 2.3 (1.6-2.3) mg/dL Total Bilirubin 0.80 (0.2-1.3) mg/dL AST 30 (14-36) U/L ALT 29 (0-35) U/L Alkaline Phosphatase 95 (38-126) U/L Troponin I (0.000-0.034) ng/mL Serum Total Protein 8.2 (6.3-8.2) g/dL Albumin 4.8 (3.5-5.0) g/dL Urinalys Dipstick Clnc MAIN LAB Urine Color YELLOW (YELLOW) Urine Appearance CLEAR (CLEAR) Urine pH 7.0 (5-6) Ur Specific [place] 1.015 (1.005-1.025) POC Urine Protein Conf 30 (Negative) Urine Ketones TRACE (NEGATIVE) Urine Nitrite NEGATIVE (NEGATIVE) Urine Bilirubin SMALL (NEGATIVE) Urine Urobilinogen 0.2 (0-1) mg/dL Urine Leukocytes TRACE (NEGATIVE) Urine WBC (Auto) 6-10 (0-5) /HPF Urine RBC (Auto) 0-2 (0-2) /HPF U Hyaline Cast (Auto) 6-10 (0-2) /LPF U Epithel Cells (Auto) FEW (FEW) /HPF Urine Bacteria (Auto) NONE (NEGATIVE) /HPF Urine RBC NEGATIVE (0-5) Larry/ul Urine Mucus (Auto) SLIGHT (NEGATIVE) /HPF Ur Culture Indicated? YES Urine Glucose >=1000 (NEGATIVE) mg/dL 05/09/22 Range/Units 18:15 WBC (4.0-10.5) x10^3/uL RBC (4.1-5.4) x10^6/uL Hgb (12.0-16.0) g/dL Hct (35-47) % MCV (78-100) fL MCH (26-32) pg MCHC (32-36) g/dL RDW (11.5-14.0) % Plt Count (150-450) x10^3/uL MPV (7.5-11.0) fL Gran % (36.0-66.0) % Immature Gran % (Auto) (0.00-0.4) % Nucleat RBC Rel Count (0.00-0.1) % Eos # (Auto) (0-0.5) x10^3/uL Immature Gran # (Auto) (0.00-0.03) x10^3u/L Absolute Lymphs (auto) (1.0-4.6) x10^3/uL Absolute Monos (auto) (0.0-1.3) x10^3/uL Absolute Nucleated RBC (0.00-0.01) x10^3u/L Lymphocytes % (24.0-44.0) % Monocytes % (0.0-12.0) % Eosinophils % (0.00-5.0) % Basophils % (0.0-0.4) % Absolute Granulocytes (1.4-6.9) x10^3/uL Basophils # (0-0.4) x10^3/uL Sodium (137-145) mmol/L Potassium (3.5-5.1) mmol/L Chloride (98-107) mmol/L Carbon Dioxide (22-30) mmol/L Anion Gap (5-15) MEQ/L BUN (7-17) mg/dL Creatinine (0.52-1.04) mg/dL Estimated GFR ML/MIN Glucose (74-106) mg/dL Calcium (8.4-10.2) mg/dL Magnesium (1.6-2.3) mg/dL Total Bilirubin (0.2-1.3) mg/dL AST (14-36) U/L ALT (0-35) U/L Alkaline Phosphatase (38-126) U/L Troponin I < 0.012 (0.000-0.034) ng/mL Serum Total Protein (6.3-8.2) g/dL Albumin (3.5-5.0) g/dL Urinalys Dipstick Clnc Urine Color (YELLOW) Urine Appearance (CLEAR) Urine pH (5-6) Ur Specific [place] (1.005-1.025) POC Urine Protein Conf (Negative) Urine Ketones (NEGATIVE) Urine Nitrite (NEGATIVE) Urine Bilirubin (NEGATIVE) Urine Urobilinogen (0-1) mg/dL Urine Leukocytes (NEGATIVE) Urine WBC (Auto) (0-5) /HPF Urine RBC (Auto) (0-2) /HPF U Hyaline Cast (Auto) (0-2) /LPF U Epithel Cells (Auto) (FEW) /HPF Urine Bacteria (Auto) (NEGATIVE) /HPF Urine RBC (0-5) Larry/ul Urine Mucus (Auto) (NEGATIVE) /HPF Ur Culture Indicated? Urine Glucose (NEGATIVE) mg/dL - Progress Progress: improved, re-examined Progress Note: 05/09/22 20:10 CAT scan of the head without contrast is negative for any acute intracranial ab normality. Counseled pt/family regarding: lab results, diagnosis, need for follow-up, rad results - Departure Departure Disposition: Home Clinical Impression: Mild dehydration, UTI (urinary tract infection) Condition: Stable Critical Care Time: No Referrals: MEGHAN MORENO [Primary Care Provider] - Follow up/PCP as directed Additional Instructions: Drink plenty fluids. Take your antibiotics as prescribed. Follow-up with your primary care physician for further evaluation management. Prescriptions: Ciprofloxacin [Cipro 500 MG] 500 mg PO BID #14 tablet
[2022-05-09 18:50] LABS: Absolute Neutrophil Ct (ANC) 5.27 x10^3/uL (1.4-6.9); Basophil (Absolute #) 0.04 x10^3/uL (0-0.4); Eosinophil % 2.6 % (0.00-5.0); Eosinophil (Absolute #) 0.26 x10^3/uL (0-0.5); Hematocrit 49.5 % (35-47); Hemoglobin 17.1 g/dL (12.0-16.0); Lymphocyte (Absolute #) 3.69 x10^3/uL (1.0-4.6); Lymphocytes % 36.8 % (24.0-44.0); Mean Cell Volume 87.1 fL (78-100); Mean Corpuscular Hemoglobin 30.1 pg (26-32); Mean Corpuscular Hgb Concent. 34.5 g/dL (32-36); Mean Platelet Volume 10.5 fL (7.5-11.0); Monocyte (Absolute #) 0.72 x10^3/uL (0.0-1.3); Monocytes % 7.2 % (0.0-12.0); Neutrophil % 52.6 % (36.0-66.0); Platelet Count 273 x10^3/uL (150-450); Red Blood Count 5.68 x10^6/uL (4.1-5.4); Red Cell Distribution Width 14.1 % (11.5-14.0)
[2022-05-09 18:57] LABS: Appearance CLEAR (CLEAR)
[2022-05-09 19:03] LABS: Bilirubin SMALL (NEGATIVE); Glucose >=1000 mg/dL (NEGATIVE); Ketones TRACE (NEGATIVE); RBC NEGATIVE Ery/ul (0-5); Specific Gravity 1.015 (1.005-1.025)
[2022-05-09 19:04] LABS: Dipstick done @ ? MAIN LAB; Nitrite NEGATIVE (NEGATIVE); Protein,Urine Dip 30 (Negative); Urobilinogen 0.2 mg/dL (0-1)
[2022-05-09 19:06] LABS: Epithelial Cells FEW /HPF (FEW); Mucus SLIGHT /HPF (NEGATIVE); RBC 0-2 /HPF (0-2); Urine Cultured Indicated? YES
[2022-05-09 19:07] LABS: ALBUMIN 4.8 g/dL (3.5-5.0); BILIRUBIN,TOTAL 0.8 mg/dL (0.2-1.3); Calcium 9.8 mg/dL (8.4-10.2); Creatinine 1 1.97 mg/dL (0.52-1.04); EST GLOMERULAR FILTRATION RATE 28.5 ML/MIN; MAGNESIUM 2.3 mg/dL (1.6-2.3); Total Protein 8.2 g/dL (6.3-8.2)
[2022-05-09] MEDS ORDERED: Levofloxacin 500 MG Tablet PO ONE (20:16)
[2022-05-09] MEDS ORDERED: Levofloxacin 500 MG Tablet ONE (20:19)
[2022-05-09 20:31] VITALS: BP 113/72; PULSE 95
--- NOTE | 2022-05-10 08:48 | XRAY ---
Indication: Dizziness. Multiple contiguous axial images obtained through the head without contrast. Comparison: None Normal appearing brain parenchyma, ventricles, and bony calvarium for patient's age. Visualized paranasal sinuses and mastoid air cells are clear. Impression: Normal CT head without contrast exam.
== END 2022-05-09 20:30 | disposition home or self-care (01) ==
LOC: ED 17:25
DX: N39.0 Urinary tract infection, site not specified (principal); E86.0 Dehydration; R42 Dizziness and giddiness; I12.9 Hypertensive chronic kidney disease with stage 1 through stage 4 chronic kidney disease, or unspecified chronic kidney disease; E78.5 Hyperlipidemia, unspecified; E11.22 Type 2 diabetes mellitus with diabetic chronic kidney disease; N18.9 Chronic kidney disease, unspecified; Z72.0 Tobacco use; Z79.899 Other long term (current) drug therapy; Z79.85 Long-term (current) use of injectable non-insulin antidiabetic drugs
CPT/HCPCS: 36000; 36415; 70450; 80053; 81015; 83735; 84484; 85025; 87086; 93005; 93041; 99284; A9270-GY

== ENCOUNTER 2022-07-20 05:34 | Day surgery (SDC) | payer BC, OTHER ==
[2022-07-20] MEDS ORDERED: Lactated Ringers 1,000 ML IV SCH (06:30)
[2022-07-20] MEDS ORDERED: Xylocaine-Mpf 2% 5 Ml Vial ONE (07:05)
[2022-07-20] MEDS ORDERED: DIPRIVAN 200 MG/20 ML IV ONE (07:05)
[2022-07-20] MEDS ORDERED: Versed 2 MG/2 ML Injection ONE (07:05)
[2022-07-20 08:10] VITALS: O2SAT 98
[2022-07-20 08:29] VITALS: BP 148/98; PULSE 77
--- NOTE | 2022-07-20 08:59 | OP ---
SURGERY DATE/TIME: 07/20/2022 0709 PREOPERATIVE DIAGNOSIS: Screening exam. POSTOPERATIVE DIAGNOSIS: Normal colon. PROCEDURE: Colonoscopy. SURGEON: Dr. Timmy Moreno. ANESTHESIA: MAC. Medications given by anesthesia department. HISTORY: The patient is a 52-year-old white female presenting now for screening colonoscopy. She was appraised of the risks of the procedure including the risk of perforation, phlebitis, untoward reaction to medication, bleeding and missed lesions. The patient verbalized her understanding and desired to have the procedure performed. DESCRIPTION OF PROCEDURE: The patient was given the medications by the anesthesia department. She had continuous pulse oximetry, ECG monitoring and intermittent blood pressure monitoring during the examination. She was placed in the left lateral decubitus position. A digital rectal examination was performed and revealed normal anal sphincter tone and no masses. The flexible Olympus pediatric colonoscope was used to intubate the rectum. A view of the colon was developed sequentially to the cecum. Upon insertion and withdrawal, including a retroflex view in the rectum, no mucosal lesions were encountered. The scope was removed from the patient who tolerated the procedure well and was sent back to outpatient recovery in good condition. The prep was noted to be fair to good.
== END 2022-07-20 08:23 | disposition home or self-care (01) ==
LOC: SDC 05:34
PROVIDERS: ATTEND Family Medicine
DX: Z12.11 Encounter for screening for malignant neoplasm of colon (principal); E11.9 Type 2 diabetes mellitus without complications
CPT/HCPCS: 82947; J2250; J2704

== ENCOUNTER 2022-09-19 07:47 | Day surgery (SDC) | payer BC, OTHER ==
[2022-09-19] MEDS ORDERED: LIDOCAINE HCL 1% 50 MG/5 ML VL PF IJ ONE (07:48)
[2022-09-19] MEDS ORDERED: Decadron 4 MG INJ IV ONE (07:48)
[2022-09-19] MEDS ORDERED: DIPRIVAN 200 MG/20 ML IV ONE (09:25)
--- NOTE | 2022-09-19 11:53 | XRAY ---
Indication: Right piriformis injection. Intraoperative fluoroscopy provided for 32 seconds. Single digital spot image submitted for interpretation demonstrates posterior needle tip projecting over the expected right piriformis muscle. Small amount of contrast injected for needle tip placement. Correlate with intraoperative findings/report.
--- NOTE | 2022-09-19 12:23 | XRAY ---
32 seconds of fluoroscopy was used in surgery for a right piriformis injection.
[2022-09-19] MEDS ORDERED: Lactated Ringers 1,000 ML IV ONE (13:26)
== END 2022-09-19 09:55 | disposition home or self-care (01) ==
LOC: SDC-PAIN 07:47
PROVIDERS: ATTEND Psychiatry & Neurology Pain Medicine
DX: M79.18 Myalgia, other site (principal); E11.9 Type 2 diabetes mellitus without complications; Z79.899 Other long term (current) drug therapy
CPT/HCPCS: 20552; 72170; 77002; 81025; 82947; J1100; J2001; J2704; Q9966

== ENCOUNTER 2022-11-06 17:08 | Emergency (ER) | payer BC, OTHER ==
--- NOTE | 2022-11-06 17:12 | ERPHSYRPT ---
- History of Present Illness Time Seen by Provider: 11/06/22 17:12 Source: patient Exam Limitations: no limitations Physician History: This is a 52-year-old white female patient who is a patient of Dr. Moreno and presents with pruritus and rash in several different areas on her body. It is unknown to her how sh got this rash. She has no specific allergies other than Imitrex. There are no new pets, no new soaps, no new exposures. Is been present for 3 days and is getting worse despite using calamine lotion. She is not short of breath. Timing/Duration: day(s) (3) Quality: itchy Severity: mild Location: generalized Possible Causes: no cause identified Modifying Factors: Improves With: calamine lotion Associated Symptoms: denies symptoms Allergies/Adverse Reactions: sumatriptan [From Imitrex] Allergy (Verified 11/06/22 17:14) Hives Home Medications: Atorvastatin Calcium [Lipitor] 20 mg PO DAILY 12/10/16 [History] Dapagliflozin Propanediol [Farxiga] 10 mg PO DAILY 02/17/21 [History] Ezetimibe 10 mg [Zetia 10 MG] 10 mg PO DAILY 02/17/21 [History] Lisinopril 10 mg [Zestril 10 MG] 10 mg PO DAILY 02/17/21 [History] Semaglutide [Ozempic] 2 mg SQ WEEKLY 02/17/21 [History] Ergocalciferol (Vitamin D2) [Vitamin D2] 1.25 mg PO WEEKLY 06/27/22 [History] Escitalopram Oxalate [Lexapro] 20 mg PO DAILY 06/27/22 [History] Hydrocodone/Acetaminophen [Hydrocodone-Acetamin 10-325 mg] 1 tablet PO DAILY PRN 06/27/22 [History] Insulin Glargine,Hum.rec.anlog [Basaglar Kwikpen U-100] 16 units SQ DAILY 06/27/22 [History] Phentermine HCl 37 mg PO UD 06/27/22 [History] Potassium Chloride 10 meq PO DAILY 06/27/22 [History] Quetiapine Fumarate 25 mg [Seroquel 25 MG] 25 mg PO HS 06/27/22 [History] Hx Tetanus, Diphtheria Vaccination/Date Given: No Hx Influenza Vaccination/Date Given: Yes Hx Pneumococcal Vaccination/Date Given: Yes Travel Risk - International Travel Have you traveled outside of the country in past 3 weeks: No - Coronavirus Screening Are you exhibiting any of the following symptoms?: No Close contact with a COVID-19 positive Pt in past 14-21 Days: No - Vaccine Status Have you recieved a Covid-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 Dates if Unknown: unk - Review of Systems Constitutional: No Symptoms Eyes: No Symptoms Ears, Nose, & Throat: No Symptoms Respiratory: No Symptoms Cardiac: No Symptoms Abdominal/Gastrointestinal: No Symptoms Genitourinary Symptoms: No Symptoms Musculoskeletal: No Symptoms Skin: Pruritis, Rash Neurological: No Symptoms Psychological: No Symptoms Endocrine: No Symptoms Hematologic/Lymphatic: No Symptoms Immunological/Allergic: No Symptoms All Other Systems: Reviewed and Negative - Past Medical History Pertinent Past Medical History: Yes Neurological History: No Pertinent History ENT History: No Pertinent History Cardiac History: High Cholesterol, Hypertension Respiratory History: Asthma, Bronchitis Endocrine Medical History: Diabetes Type II, Other Musculoskeletal History: Arthritis GI Medical History: No Pertinent History History: No Pertinent History Psycho-Social History: No Pertinent History, Depression Female Reproductive Disorders: No Pertinent History Other Medical History: Kidney Disease - Past Surgical History Past Surgical History: Yes Neuro Surgical History: No Pertinent History Cardiac: No Pertinent History Respiratory: No Pertinent History Gastrointestinal: Cholecystectomy Genitourinary: No Pertinent History Musculoskeletal: Orthopedic Surgery Female Surgical History: Section, Tubal Ligation Other Surgical History: Carpal tunnel on right hand 1992. left knee surgery. hx back injecti - Social History Smoking Status: Current every day smoker How long have you smoked: 30 Exposure to second hand smoke: Yes Drug Use: none Patient Lives Alone: No - Nursing Vital Signs Nursing Vital Signs: Initial Vital Signs Temperature 97.6 F 11/06/22 17:15 Pulse Rate 94 H 11/06/22 17:15 Respiratory Rate 18 11/06/22 17:15 Blood Pressure 143/89 11/06/22 17:15 O2 Sat by Pulse Oximetry 99 11/06/22 17:15 Pain Scale Pain Intensity 0 - Physical Exam General Appearance: no apparent distress, alert, anxiety Eye Exam: PERRL/EOMI, eyes nml inspection Ears, Nose, Throat Exam: normal ENT inspection, moist mucous membranes Neck Exam: normal inspection, non-tender, supple, full range of motion Respiratory Exam: airway intact, No chest tenderness, No respiratory distress Gastrointestinal/Abdomen Exam: No tenderness, No guarding Pelvic Exam: not done Rectal Exam: not done Extremity Exam: normal range of motion, pelvis stable Neurologic Exam: alert, oriented x 3, 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 Patches of pink punctated rash) Lymphatic Exam: No adenopathy SpO2 Interpretation: normal O2 Delivery: Room Air - Course Nursing assessment & vital signs reviewed: Yes Ordered Tests: Medication Summary Generic Name Dose Route Start Last Admin Trade Name Freq PRN Reason Stop Dose Admin Diphenhydramine HCl 50 mg 11/06/22 17:35 Diphenhydramine Hcl 25 Mg Capsule PO 11/06/22 17:36 STAT ONE Famotidine 40 mg 11/06/22 17:36 Famotidine 20 Mg Tablet PO 11/06/22 17:37 STAT ONE Prednisone 20 mg 11/06/22 17:36 Prednisone 20 Mg Tablet PO 11/06/22 17:37 STAT ONE - Progress Progress: unchanged Counseled pt/family regarding: diagnosis, need for follow-up Medical Desision Making - Discussion of managment Agreed on:: Treatment plan, need for follow-up - Diagnostic Testing Diagnostic test were ordered, analyzed, and reviewed by me: No - Departure Departure Disposition: Home Clinical Impression: Contact dermatitis Condition: Stable Critical Care Time: No Referrals: MEGHAN MORENO [Primary Care Provider] - Follow up/PCP as directed Additional Instructions: Keep site clean daily with soap and water. Keep the area moist with unscented lotion. Benadryl 25 mg orally every 8 hours x4 days.Take medications as prescribed. Follow up with primary doctor for further management. Prescriptions: Prednisone 10 mg [Deltasone 10 mg] 10 mg PO TID #12 tablet Famotidine 20 mg [Pepcid 20 MG] 20 mg PO DAILY #10 tablet
[2022-11-06 17:19] VITALS: BP 143/89; PULSE 94; O2SAT 99
[2022-11-06] MEDS ORDERED: BENADRYL 25 MG CAPSULE PO ONE (17:35)
[2022-11-06] MEDS ORDERED: DELTASONE 20 MG PO ONE (17:36)
[2022-11-06] MEDS ORDERED: Pepcid 20 MG PO ONE (17:36)
[2022-11-06] MEDS ORDERED: Pepcid 20 MG ONE (17:42)
[2022-11-06] MEDS ORDERED: BENADRYL 25 MG CAPSULE ONE (17:42)
[2022-11-06] MEDS ORDERED: DELTASONE 20 MG ONE (17:43)
== END 2022-11-06 18:00 | disposition home or self-care (01) ==
LOC: ED 17:08
DX: L25.9 Unspecified contact dermatitis, unspecified cause (principal); E78.5 Hyperlipidemia, unspecified; I10 Essential (primary) hypertension; E11.9 Type 2 diabetes mellitus without complications; Z79.52 Long term (current) use of systemic steroids; Z79.4 Long term (current) use of insulin; Z79.84 Long term (current) use of oral hypoglycemic drugs; Z79.85 Long-term (current) use of injectable non-insulin antidiabetic drugs; Z79.899 Other long term (current) drug therapy; Z72.0 Tobacco use
CPT/HCPCS: 99282; A9270-GY

== ENCOUNTER 2023-02-27 07:40 | Day surgery (SDC) | payer BC, OTHER ==
[2023-02-27] MEDS ORDERED: LIDOCAINE HCL 1% 50 MG/5 ML VL PF IJ ONE (07:41)
[2023-02-27] MEDS ORDERED: Sodium Chloride 0.9(Preservative Free) 10 ML IJ ONE (07:41)
[2023-02-27] MEDS ORDERED: Depo-Medrol 40 MG/ML IM ONE (07:41)
[2023-02-27] MEDS ORDERED: Decadron 4 MG INJ IV ONE (07:41)
[2023-02-27 08:16] LABS: HCG URINE TEST NEGATIVE (NEGATIVE)
[2023-02-27] MEDS ORDERED: DIPRIVAN 200 MG/20 ML IV ONE (09:35)
--- NOTE | 2023-02-27 12:01 | XRAY ---
Indication: Lumbar MICHELLE. Intraoperative fluoroscopy provided for 13 seconds. 2 digital spot image submitted for interpretation demonstrates needle tip projecting posterior to lumbosacral junction interspace. Small amount of contrast injected for needle tip placement. Correlate with intraoperative findings/report.
--- NOTE | 2023-02-27 12:08 | XRAY ---
Indication: Bilateral piriformis injection. Intraoperative fluoroscopy provided for 22 seconds. 3 digital spot image submitted for interpretation demonstrates needle tip projecting over the expected left and right piriformis. Small amount of contrast injected for needle tip placement. Correlate with intraoperative findings/report.
--- NOTE | 2023-02-27 12:08 | XRAY ---
13 seconds of fluoroscopy was used in surgery for a lumbar MICHELLE.
--- NOTE | 2023-02-27 12:08 | XRAY ---
22 seconds of fluoroscopy was used in surgery for a bilateral piriformis injection.
[2023-02-27] MEDS ORDERED: Lactated Ringers 1,000 ML IV ONE (12:43)
== END 2023-02-27 10:10 | disposition home or self-care (01) ==
LOC: SDC-PAIN 07:40
PROVIDERS: ATTEND Psychiatry & Neurology Pain Medicine
DX: M54.16 Radiculopathy, lumbar region (principal); M79.18 Myalgia, other site; E11.9 Type 2 diabetes mellitus without complications; Z79.899 Other long term (current) drug therapy
CPT/HCPCS: 20552; 62323; 72100; 72170; 77002; 77003; 81025; 82947; J1030; J1100; J2001; J2704; Q9966

== ENCOUNTER 2023-04-03 08:29 | Day surgery (SDC) | payer BC, OTHER ==
[2023-04-03] MEDS ORDERED: Depo-Medrol 40 MG/ML IM ONE (08:30)
[2023-04-03] MEDS ORDERED: BUPIVACAINE 0.5% VIAL IJ ONE (08:30)
[2023-04-03] MEDS ORDERED: LIDOCAINE HCL 1% 50 MG/5 ML VL PF IJ ONE (08:30)
[2023-04-03 08:59] LABS: HCG URINE TEST NEGATIVE (NEGATIVE)
[2023-04-03] MEDS ORDERED: DIPRIVAN 200 MG/20 ML IV ONE ×2 (09:57→10:10)
[2023-04-03] MEDS ORDERED: Lactated Ringers 1,000 ML IV ONE (10:45)
--- NOTE | 2023-04-03 12:22 | XRAY ---
Indication: Right L4-S1 RFA. Intraoperative fluoroscopy provided for 20 seconds. 4 digital spot image submitted for interpretation demonstrates posterior needle tips projecting over the expected right L4-S1 nerve roots. Correlate with intraoperative findings/report.
--- NOTE | 2023-04-03 12:27 | XRAY ---
20 seconds of fluoroscopy was used in surgery for a right L4-S1 RFA.
== END 2023-04-03 10:45 | disposition home or self-care (01) ==
LOC: SDC-PAIN 08:29
PROVIDERS: ATTEND Psychiatry & Neurology Pain Medicine
DX: M47.816 Spondylosis without myelopathy or radiculopathy, lumbar region (principal); E11.9 Type 2 diabetes mellitus without complications; Z79.899 Other long term (current) drug therapy
CPT/HCPCS: 64635; 64636; 72100; 77002; 81025; 82947; J1030; J2001; J2704

== ENCOUNTER 2023-04-10 06:53 | Day surgery (SDC) | payer BC, OTHER ==
[2023-04-10] MEDS ORDERED: LIDOCAINE HCL 1% 50 MG/5 ML VL PF IJ ONE (06:54)
[2023-04-10] MEDS ORDERED: BUPIVACAINE 0.5% VIAL IJ ONE (06:54)
[2023-04-10] MEDS ORDERED: Depo-Medrol 40 MG/ML IM ONE (06:54)
[2023-04-10 07:11] LABS: HCG URINE TEST NEGATIVE (NEGATIVE)
[2023-04-10] MEDS ORDERED: DIPRIVAN 200 MG/20 ML IV ONE ×2 (08:03→08:14)
[2023-04-10] MEDS ORDERED: Xylocaine-Mpf 2% 5 Ml Vial ONE (08:12)
[2023-04-10] MEDS ORDERED: Lactated Ringers 1,000 ML IV ONE (08:28)
--- NOTE | 2023-04-10 10:17 | XRAY ---
Indication: Left L4-S1 RFA. Intraoperative fluoroscopy provided for 15 seconds. 3 digital spot images submitted for interpretation demonstrates posterior needle tips projecting over the left L4-S1 nerve roots. Correlate with intraoperative findings/report.
--- NOTE | 2023-04-10 10:53 | XRAY ---
15 seconds of fluoroscopy was used in surgery for a left L4-S1 RFA.
== END 2023-04-10 08:38 | disposition home or self-care (01) ==
LOC: SDC-PAIN 06:53
PROVIDERS: ATTEND Psychiatry & Neurology Pain Medicine
DX: M47.816 Spondylosis without myelopathy or radiculopathy, lumbar region (principal); E11.9 Type 2 diabetes mellitus without complications; Z79.899 Other long term (current) drug therapy
CPT/HCPCS: 64635; 64636; 72100; 77002; 81025; 82947; J1030; J2001; J2704

== ENCOUNTER 2023-07-24 07:25 | Day surgery (SDC) | payer BC, OTHER ==
[2023-07-24] MEDS ORDERED: BUPIVACAINE 0.5% VIAL IJ ONE (07:26)
[2023-07-24] MEDS ORDERED: Depo-Medrol 40 MG/ML IM ONE (07:26)
[2023-07-24 07:46] LABS: HCG URINE TEST NEGATIVE (NEGATIVE)
[2023-07-24] MEDS ORDERED: DIPRIVAN 200 MG/20 ML IV ONE ×2 (08:50→08:59)
--- NOTE | 2023-07-24 10:04 | XRAY ---
Indication: Bilateral SI joint and bilateral hip injection. Intraoperative fluoroscopy provided for 43 seconds. 6 digital spot images obtained prone submitted for interpretation demonstrates posterior needle tip projecting over the left and right SI joint. Additional needle tip lateral to the left/right femur necks with small amount of contrast injected for needle tip placement. Correlate with intraoperative findings/report.
--- NOTE | 2023-07-24 10:45 | XRAY ---
43 seconds of fluoroscopy was used in surgery for a bilateral sacroiliac joint and bilateral intra-articular hip injection.
[2023-07-24] MEDS ORDERED: Lactated Ringers 1,000 ML IV ONE (11:16)
== END 2023-07-24 09:20 | disposition home or self-care (01) ==
LOC: SDC-PAIN 07:25
PROVIDERS: ATTEND Psychiatry & Neurology Pain Medicine
DX: M46.1 Sacroiliitis, not elsewhere classified (principal); M16.0 Bilateral primary osteoarthritis of hip; E11.9 Type 2 diabetes mellitus without complications; Z79.899 Other long term (current) drug therapy
CPT/HCPCS: 20610; 27096; 73521; 77002; 81025; 82947; J1030; J2704; Q9966; G0260

== ENCOUNTER 2024-02-26 07:17 | Day surgery (SDC) | payer BC, OTHER ==
[2024-02-26 08:14] LABS: HCG URINE TEST NEGATIVE (NEGATIVE)
== END 2024-02-26 08:10 | disposition home or self-care (01) ==
LOC: SDC-PAIN 07:17
PROVIDERS: ATTEND Psychiatry & Neurology Pain Medicine
DX: Z53.8 Procedure and treatment not carried out for other reasons (principal); E11.9 Type 2 diabetes mellitus without complications
CPT/HCPCS: 81025; 82947

== ENCOUNTER 2024-03-18 06:41 | Day surgery (SDC) | payer BC, OTHER ==
[2024-03-18] MEDS ORDERED: Depo-Medrol 40 MG/ML IM ONE (06:42)
[2024-03-18] MEDS ORDERED: BUPIVACAINE 0.5% VIAL IJ ONE (06:42)
[2024-03-18 07:04] LABS: HCG URINE TEST NEGATIVE (NEGATIVE)
[2024-03-18] MEDS ORDERED: DIPRIVAN 200 MG/20 ML IV ONE (08:41)
[2024-03-18] MEDS ORDERED: Lactated Ringers 1,000 ML IV ONE (09:25)
--- NOTE | 2024-03-18 10:10 | XRAY ---
Indication: Bilateral SI joint injection. Intraoperative fluoroscopy provided for 22 seconds. 2 digital spot images submitted for interpretation demonstrates posterior needle tips projecting over the expected left and right SI joint. Small amount of contrast injected for needle tip basement. Correlate with intraoperative findings/report.
--- NOTE | 2024-03-18 10:54 | XRAY ---
22 seconds of fluoroscopy was used in surgery for a bilateral sacroiliac joint injection.
== END 2024-03-18 09:07 | disposition home or self-care (01) ==
LOC: SDC-PAIN 06:41
PROVIDERS: ATTEND Psychiatry & Neurology Pain Medicine
DX: M46.1 Sacroiliitis, not elsewhere classified (principal); E11.9 Type 2 diabetes mellitus without complications
CPT/HCPCS: 27096; 72202; 77002; 81025; 82947; J2704; Q9966; G0260

== ENCOUNTER 2024-04-15 06:55 | Day surgery (SDC) | payer BC, OTHER ==
[2024-04-15] MEDS ORDERED: BUPIVACAINE 0.5% VIAL IJ ONE (06:56)
[2024-04-15] MEDS ORDERED: Depo-Medrol 40 MG/ML IM ONE (06:56)
[2024-04-15 08:09] LABS: HCG URINE TEST NEGATIVE (NEGATIVE)
[2024-04-15] MEDS ORDERED: HUMULIN R ONE (08:26)
[2024-04-15] MEDS ORDERED: DIPRIVAN 200 MG/20 ML IV ONE (08:30)
[2024-04-15] MEDS ORDERED: Lactated Ringers 1,000 ML IV ONE (09:36)
--- NOTE | 2024-04-15 10:59 | XRAY ---
Indication: Bilateral hip injection. Intraoperative fluoroscopy provided for 19 seconds. 2 digital spot image submitted for interpretation demonstrates needle tip projecting lateral to right femur head. Second needle tip lateral to left femur neck. Small amount of contrast injected for both needle tip placement. Correlate with intraoperative findings/report.
--- NOTE | 2024-04-15 12:05 | XRAY ---
19 seconds of fluoroscopy was used in surgery for a bilateral intra-articular hip injection.
== END 2024-04-15 09:00 ==
LOC: SDC-PAIN 06:55
PROVIDERS: ATTEND Psychiatry & Neurology Pain Medicine
DX: M16.0 Bilateral primary osteoarthritis of hip (principal); E11.9 Type 2 diabetes mellitus without complications
CPT/HCPCS: 20610; 73521; 77002; 81025; 82947; J1815; J2704; Q9966

== ENCOUNTER 2024-08-26 06:40 | Day surgery (SDC) | payer OTHER ==
[2024-08-26] MEDS ORDERED: BUPIVACAINE 0.5% VIAL IJ ONE (06:41)
[2024-08-26] MEDS ORDERED: Depo-Medrol 40 MG/ML IM ONE (06:41)
[2024-08-26 07:12] LABS: HCG URINE TEST NEGATIVE (NEGATIVE)
[2024-08-26] MEDS ORDERED: propofoL IV ONE (08:12)
--- NOTE | 2024-08-26 09:38 | XRAY ---
Indication: Bilateral SI joint injection. Intraoperative fluoroscopy provided for 16 seconds. 2 digital spot images submitted for interpretation demonstrates posterior needle tips projecting left and right SI joints. Small amount of contrast injected for needle tip placement. Correlate with intraoperative findings/report.
--- NOTE | 2024-08-26 10:06 | XRAY ---
16 seconds of fluoroscopy was used in surgery for a bilateral sacroiliac joint injection.
== END 2024-08-26 08:40 | disposition home or self-care (01) ==
LOC: SDC-PAIN 06:40
PROVIDERS: ATTEND Psychiatry & Neurology Pain Medicine
DX: M46.1 Sacroiliitis, not elsewhere classified (principal); E11.9 Type 2 diabetes mellitus without complications
CPT/HCPCS: 27096; 72202; 77002; 81025; 82947; J2704; Q9966

== ENCOUNTER 2024-10-01 06:49 | Day surgery (SDC) | payer OTHER ==
[2024-10-01] MEDS ORDERED: BUPIVACAINE 0.5% VIAL IJ ONE (06:50)
[2024-10-01] MEDS ORDERED: methylPREDNISolone acetate IM ONE (06:50)
[2024-10-01] MEDS ORDERED: Lactated Ringers 500 ML IV ONE (07:05)
[2024-10-01 07:21] LABS: HCG URINE TEST NEGATIVE (NEGATIVE)
[2024-10-01] MEDS ORDERED: propofoL IV ONE (08:27)
--- NOTE | 2024-10-01 21:07 | XRAY ---
Indication: Bilateral hip injection. Intraoperative fluoroscopy provided for 22 seconds. 2 digital spot image submitted for interpretation demonstrates needle tips projecting lateral to left/right femur necks. Small amount of contrast injected for both needle tip basement. Correlate with intraoperative findings/report.
--- NOTE | 2024-10-01 21:51 | XRAY ---
22 seconds of fluoroscopy was used in surgery for a bilateral intra-articular hip injection.
== END 2024-10-01 08:39 | disposition home or self-care (01) ==
LOC: SDC-PAIN 06:49
PROVIDERS: ATTEND Psychiatry & Neurology Pain Medicine
DX: M16.0 Bilateral primary osteoarthritis of hip (principal); E11.9 Type 2 diabetes mellitus without complications
CPT/HCPCS: 20610; 73521; 77002; 81025; 82947; J1010; J2704; Q9966

== ENCOUNTER 2024-12-09 08:12 | Day surgery (SDC) | payer OTHER ==
[2024-12-09] MEDS ORDERED: LIDOCAINE HCL 1% 50 MG/5 ML VL IJ ONE (08:13)
[2024-12-09] MEDS ORDERED: BUPIVACAINE 0.5% VIAL IJ ONE (08:13)
[2024-12-09] MEDS ORDERED: methylPREDNISolone acetate IM ONE (08:13)
[2024-12-09 09:02] LABS: HCG URINE TEST NEGATIVE (NEGATIVE)
[2024-12-09] MEDS ORDERED: propofoL IV ONE (10:15)
[2024-12-09] MEDS ORDERED: Lactated Ringers 1,000 ML IV ONE (11:12)
--- NOTE | 2024-12-09 12:23 | XRAY ---
Indication: Right L4-S1 RFA. Intraoperative fluoroscopy provided for 20 seconds. Single digital spot image submitted for interpretation demonstrates posterior needle tips projecting over expected right L4-S1 nerve roots. Correlate with intraoperative findings/report.
--- NOTE | 2024-12-09 12:27 | XRAY ---
20 seconds of fluoroscopy was used in surgery for a right L4-S1 RFA.
== END 2024-12-09 10:51 | disposition home or self-care (01) ==
LOC: SDC-PAIN 08:12
PROVIDERS: ATTEND Psychiatry & Neurology Pain Medicine
DX: M47.817 Spondylosis without myelopathy or radiculopathy, lumbosacral region (principal); E11.9 Type 2 diabetes mellitus without complications
CPT/HCPCS: 64635; 64636; 72100; 81025; 82947; J1010; J2704

== ENCOUNTER 2024-12-16 08:14 | Day surgery (SDC) | payer OTHER ==
[2024-12-16] MEDS ORDERED: LIDOCAINE HCL 1% 50 MG/5 ML VL IJ ONE (08:15)
[2024-12-16] MEDS ORDERED: methylPREDNISolone acetate IM ONE (08:15)
[2024-12-16] MEDS ORDERED: BUPIVACAINE 0.5% VIAL IJ ONE (08:15)
[2024-12-16 08:56] LABS: HCG URINE TEST NEGATIVE (NEGATIVE)
[2024-12-16] MEDS ORDERED: propofoL IV ONE (10:31)
[2024-12-16] MEDS ORDERED: Lactated Ringers 1,000 ML IV ONE (13:41)
--- NOTE | 2024-12-16 21:06 | XRAY ---
Indication: Left L4-S1 RFA. Intraoperative fluoroscopy provided for 13 seconds. 3 digital spot image submitted for interpretation demonstrates posterior needle tips projecting over expected left L4-S1 nerve roots. Correlate with intraoperative findings/report.
--- NOTE | 2024-12-16 21:22 | XRAY ---
13 seconds of fluoroscopy was used in surgery for a left L4-S1 RFA.
== END 2024-12-16 10:58 | disposition home or self-care (01) ==
LOC: SDC-PAIN 08:14
PROVIDERS: ATTEND Psychiatry & Neurology Pain Medicine
DX: M47.817 Spondylosis without myelopathy or radiculopathy, lumbosacral region (principal); E11.9 Type 2 diabetes mellitus without complications
CPT/HCPCS: 64635; 64636; 72100; 81025; 82947; J1010; J2704

== ENCOUNTER 2025-07-15 14:08 | Emergency (ER) | payer OTHER ==
[2025-07-15 14:21] VITALS: TEMP 97.8
--- NOTE | 2025-07-15 14:28 | ERPHSYRPT ---
- History of Present Illness Time Seen by Provider: 07/15/25 14:28 Source: patient, family Exam Limitations: no limitations Patient Subjective Stated Complaint: pt states she was sent over from office to have fluids, pt states she has been vomiting off and on since saturday.she feel she is dehydrated Triage Nursing Assessment: pt alert walked in gait steady, no distress, resp easy, skin w/d/p, no edema noted, abd soft, nontender, moves all ext well Physician History: 55-year-old white female patient arrives with private vehicle accompanied by family and is a patient Dr. Moreno. This patient has had intermittent vomiting for 2 days. Patient was seen at Dr. Moreno's office prior to arrival. Because of her symptoms and the fact she was feeling a little bit dizzy there was concern for dehydration. Patient has a mild headache but no strokelike symptoms. Patient is a smoker of cigarettes. She has an associated cough. She denies fever. She denies chest pain. She has had no abdominal pain. She tried Phenergan initially and that worked well the first day but today she states it has been ineffective. Patient has a history of diabetes, hypertension, gastroesophageal reflux disease, hyperlipidemia and anxiety/depression. Timing/Duration: day(s) (2), worse Cough Quality/Degree: mild, dry cough Possible Cause: occasional episodes Modifying Factors: Improves With: coughing Associated Symptoms: cough, lightheadedness, No chest pain/soreness Allergies/Adverse Reactions: sumatriptan [From Imitrex] Allergy (Verified 07/15/25 14:15) Hives Home Medications: Atorvastatin Calcium [Lipitor] 20 mg PO DAILY 12/10/16 [History] Dapagliflozin Propanediol [Farxiga] 10 mg PO DAILY 02/17/21 [History] Ezetimibe 10 mg [Zetia 10 MG] 10 mg PO DAILY 02/17/21 [History] Lisinopril 10 mg [Zestril 10 MG] 10 mg PO DAILY 02/17/21 [History] Semaglutide [Ozempic] 2 mg SQ WEEKLY 02/17/21 [History] Ergocalciferol (Vitamin D2) [Vitamin D2] 1.25 mg PO WEEKLY 06/27/22 [History] Escitalopram Oxalate [Lexapro] 20 mg PO DAILY 06/27/22 [History] Hydrocodone/Acetaminophen [[place] 10-325 mg] 1 tablet PO DAILY PRN 06/27/22 [History] Insulin Glargine,Hum.rec.anlog [Basaglar Kwikpen U-100] 16 units SQ DAILY 06/27/22 [History] Phentermine HCl 37 mg PO UD 06/27/22 [History] Potassium Chloride 10 meq PO DAILY 06/27/22 [History] Hx Tetanus, Diphtheria Vaccination/Date Given: Yes Hx Influenza Vaccination/Date Given: Yes Hx Pneumococcal Vaccination/Date Given: Yes Immunizations Up to Date: Yes Travel Risk - International Travel Have you traveled outside of the country in past 3 weeks: No - Emerging Infectious Disease Are you exhibiting symptoms associated with any current EIDs: Yes Symptoms: Vomitting - Review of Systems Constitutional: No Symptoms Eyes: No Symptoms Ears, Nose, & Throat: No Symptoms Respiratory: Cough Cardiac: No Symptoms Abdominal/Gastrointestinal: Appetite Changes Genitourinary Symptoms: No Symptoms Musculoskeletal: Arthralgias, Myalgias Skin: No Symptoms Psychological: Other Endocrine: No Symptoms (Mild lightheadedness) Hematologic/Lymphatic: No Symptoms Immunological/Allergic: No Symptoms All Other Systems: Reviewed and Negative - Past Medical History Pertinent Past Medical History: Yes Neurological History: No Pertinent History ENT History: No Pertinent History Cardiac History: High Cholesterol, Hypertension Respiratory History: Asthma, Bronchitis Endocrine Medical History: Diabetes Type II, Other Musculoskeletal History: Arthritis GI Medical History: No Pertinent History History: No Pertinent History Psycho-Social History: No Pertinent History, Depression Female Reproductive Disorders: No Pertinent History Other Medical History: Kidney Disease - Past Surgical History Past Surgical History: Yes Neuro Surgical History: No Pertinent History Cardiac: No Pertinent History Respiratory: No Pertinent History Gastrointestinal: Cholecystectomy Genitourinary: No Pertinent History Musculoskeletal: Orthopedic Surgery Female Surgical History: Section, Tubal Ligation Other Surgical History: Carpal tunnel on right hand 1992. left knee surgery. hx back injecti - Female History Hx Last Menstrual Period: post Hx Now: No - Social History Smoking Status: Current every day smoker How long have you smoked: 30 Exposure to second hand smoke: Yes Drug Use: none - Social Determinants of Health Will the patient participate in the screening: Declined to provide - Nursing Vital Signs Nursing Vital Signs: Initial Vital Signs Temperature 97.8 F 07/15/25 14:20 Pulse Rate 108 H 12/11/25 14:20 Respiratory Rate 14 07/15/25 14:20 Blood Pressure 113/78 07/15/25 14:20 O2 Sat by Pulse Oximetry 100 07/15/25 14:20 Pain Scale Pain Intensity 4 - Physical Exam General Appearance: no apparent distress, alert, anxiety Eye Exam: PERRL/EOMI, eyes nml inspection Ears, Nose, Throat Exam: normal ENT inspection, moist mucous membranes Neck Exam: normal inspection, non-tender, supple, full range of motion Respiratory Exam: normal breath sounds, lungs clear, No chest tenderness, No respiratory distress Cardiovascular Exam: normal heart sounds, normal peripheral pulses, tachycardia Gastrointestinal/Abdomen Exam: soft, normal bowel sounds, No tenderness Pelvic Exam: not done Rectal Exam: not done Back Exam: normal inspection, normal range of motion, No CVA tenderness, No vertebral tenderness Extremity Exam: normal inspection, normal range of motion, pelvis stable Neurologic Exam: alert, oriented x 3, cooperative, vice president of talent acquisition II-XII nml as tested, nml cerebellar function, nml station & gait, sensation nml Skin Exam: normal color, warm, dry Lymphatic Exam: No adenopathy SpO2 Interpretation: normal SpO2: 100 O2 Delivery: Room Air - Course Nursing assessment & vital signs reviewed: Yes Ordered Tests: Active Orders 24 hr Category Date Time Status IV Insertion STAT Care 07/15/25 14:28 Active CHEST 1 VIEW (PORTABLE) Stat Exams 07/15/25 14:46 Completed AMYLASE Stat Lab 07/15/25 14:44 Completed BLOOD CULTURE Stat Lab 07/15/25 14:51 Received BMP Stat Lab 07/15/25 17:13 Completed CBC W DIFF Stat Lab 07/15/25 14:44 Completed CMP Stat Lab 07/15/25 14:44 Completed LIPASE Stat Lab 07/15/25 14:44 Completed Lactic Acid Stat Lab 07/15/25 14:28 Completed MONO SCREEN Stat Lab 07/15/25 14:51 Completed UA W/RFX UR CULTURE Stat Lab 07/15/25 14:29 Completed Medication Summary Discontinued Medications Generic Name Dose Route Start Last Admin Trade Name Freq PRN Reason Stop Dose Admin Sodium Chloride 1,000 mls @ 999 mls/hr 07/15/25 14:28 07/15/25 17:32 Sodium Chloride 0.9% 1000 Ml IV 07/15/25 15:28 Infused .Q1H1M STA Infusion Sodium Chloride Confirm 07/15/25 14:34 Sodium Chloride 0.9% 1000 Ml Administered 07/15/25 14:35 Dose 1,000 mls @ ud .ROUTE .STK-MED ONE Lactated Ringer's 1,000 mls @ 999 mls/hr 07/15/25 15:47 07/15/25 17:33 Lactated Ringers IV 07/15/25 16:47 Infused .Q1H1M ONE Infusion Lactated Ringer's Confirm 07/15/25 15:59 Lactated Ringers Administered 07/15/25 16:00 Dose 1,000 mls @ ud IV .STK-MED ONE Sodium Chloride 500 mls @ 500 mls/hr 07/15/25 17:29 07/15/25 17:40 Sodium Chloride 0.9% 500 Ml IV 07/15/25 18:28 500 mls/hr .Q1H ONE Administration Sodium Chloride Confirm 07/15/25 17:39 Sodium Chloride 0.9% 500 Ml Administered 07/15/25 17:40 Dose 500 mls @ ud IV .STK-MED ONE Ondansetron HCl 4 mg 07/15/25 14:28 07/15/25 14:41 Ondansetron Hcl 4 Mg/2 Ml Vial IV 07/15/25 14:29 4 mg STAT ONE Administration Ondansetron HCl Confirm 07/15/25 14:34 Ondansetron Hcl 4 Mg/2 Ml Vial Administered 07/15/25 14:35 Dose 4 mg .ROUTE .STK-MED ONE Pantoprazole Sodium 40 mg 07/15/25 14:28 07/15/25 14:41 Pantoprazole 40 Mg Vial IV 07/15/25 14:29 40 mg STAT ONE Administration Pantoprazole Sodium Confirm 07/15/25 14:34 Pantoprazole 40 Mg Vial Administered 07/15/25 14:35 Dose 40 mg IV .STK-MED ONE Lab/Rad Data: Laboratory Result Diagrams 07/15/25 14:44 07/15/25 17:13 Laboratory Results 07/15/25 07/15/25 07/15/25 Range/Units 17:13 14:55 14:51 WBC (3.98-10.04) x10^3/uL RBC (3.93-5.22) x10^6/uL Hgb (11.2-15.7) g/dL Hct (34.1-44.9) % MCV (79.4-94.8) fL MCH (25.6-32.2) pg MCHC (32.2-35.5) g/dL RDW (11.7-14.4) % Plt Count (182-369) x10^3/uL MPV (9.4-12.3) fL Gran % (34.0-71.1) % Immature Gran % (Auto) (0.001-0.429) % Nucleat RBC Rel Count (0.00-0.2) % Eos # (Auto) (0.04-0.36) x10^3/uL Immature Gran # (Auto) (0.001-0.031) x10^3u/L Absolute Lymphs (auto) (1.18-3.74) x10^3/uL Absolute Monos (auto) (0.24-0.86) x10^3/uL Absolute Nucleated RBC (0.00-0.012) x10^3u/L Lymphocytes % (19.3-51.7) % Monocytes % (4.7-12.5) % Eosinophils % (0.7-5.8) % Basophils % (0.1-1.2) % Absolute Granulocytes (1.56-6.13) x10^3/uL Basophils # (0.01-0.08) x10^3/uL Sodium 135 (135-145) mmol/L Potassium 3.7 (3.5-5.1) mmol/L Chloride 100 (98-107) mmol/L Carbon Dioxide 20 L (22-30) mmol/L Anion Gap 18.7 H (5-15) MEQ/L BUN 26 H (7-17) mg/dL Creatinine 1.17 H (0.52-1.04) mg/dL Estimated GFR 55.5 ML/MIN Glucose 95 (74-106) mg/dL Lactic Acid (0.4-2.0) Calcium 8.7 (8.4-10.2) mg/dL Total Bilirubin (0.2-1.3) mg/dL AST (14-36) U/L ALT (0-35) U/L Alkaline Phosphatase (38-126) U/L Serum Total Protein (6.3-8.2) g/dL Albumin (3.5-5.0) g/dL Amylase (30-110) U/L Lipase (23-300) U/L Urine Color (Yellow) Urine Appearance (Clear) Urine pH (4.6-8.0) Ur Specific [place] (1.005-1.030) Urine Protein (Negative) Urine Glucose (UA) (Negative) mg/dL Urine Ketones (Negative) Urine Blood (Negative) Urine Nitrite (Negative) Urine Bilirubin (Negative) Urine Urobilinogen (0.2) mg/dL Ur Leukocyte Esterase (Negative) U Hyaline Cast (Auto) (0-2) /LPF Urine Microscopic RBC (0-5) /HPF Urine Microscopic WBC (0-5) /HPF Ur Epithelial Cells (None Seen) /HPF Urine Bacteria (None Seen) /HPF Urine Culture Reflexed (NO) Monoscreen NEGATIVE (NEGATIVE) Influenza Type A Ag NEGATIVE (NEGATIVE) Influenza Type B Ag NEGATIVE (NEGATIVE) RSV (PCR) NEGATIVE (NEGATIVE) SARS-CoV-2 (PCR) NEGATIVE (NEGATIVE) 07/15/25 07/15/25 07/15/25 Range/Units 14:44 14:44 14:29 WBC 11.2 H (3.98-10.04) x10^3/uL RBC 6.29 H (3.93-5.22) x10^6/uL Hgb 18.1 H (11.2-15.7) g/dL Hct 55.5 H (34.1-44.9) % MCV 88.2 (79.4-94.8) fL MCH 28.8 (25.6-32.2) pg MCHC 32.6 (32.2-35.5) g/dL RDW 14.2 (11.7-14.4) % Plt Count 302 (182-369) x10^3/uL MPV 9.9 (9.4-12.3) fL Gran % 66.2 (34.0-71.1) % Immature Gran % (Auto) 0.4 (0.001-0.429) % Nucleat RBC Rel Count 0.0 (0.00-0.2) % Eos # (Auto) 0.10 (0.04-0.36) x10^3/uL Immature Gran # (Auto) 0.04 H (0.001-0.031) x10^3u/L Absolute Lymphs (auto) 2.98 (1.18-3.74) x10^3/uL Absolute Monos (auto) 0.59 (0.24-0.86) x10^3/uL Absolute Nucleated RBC 0.00 (0.00-0.012) x10^3u/L Lymphocytes % 26.7 (19.3-51.7) % Monocytes % 5.3 (4.7-12.5) % Eosinophils % 0.9 (0.7-5.8) % Basophils % 0.5 (0.1-1.2) % Absolute Granulocytes 7.40 H (1.56-6.13) x10^3/uL Basophils # 0.06 (0.01-0.08) x10^3/uL Sodium 135 (135-145) mmol/L Potassium 3.6 (3.5-5.1) mmol/L Chloride 92 L (98-107) mmol/L Carbon Dioxide 19 L (22-30) mmol/L Anion Gap 27.5 H (5-15) MEQ/L BUN 30 H (7-17) mg/dL Creatinine 1.39 H (0.52-1.04) mg/dL Estimated GFR 45.1 ML/MIN Glucose 131 H (74-106) mg/dL Lactic Acid (0.4-2.0) Calcium 9.9 (8.4-10.2) mg/dL Total Bilirubin 1.60 H (0.2-1.3) mg/dL AST 30 (14-36) U/L ALT 26 (0-35) U/L Alkaline Phosphatase 106 (38-126) U/L Serum Total Protein 8.2 (6.3-8.2) g/dL Albumin 5.0 (3.5-5.0) g/dL Amylase 111 H (30-110) U/L Lipase 750 H (23-300) U/L Urine Color Yellow (Yellow) Urine Appearance Clear (Clear) Urine pH 5.0 (4.6-8.0) Ur Specific [place] 1.020 (1.005-1.030) Urine Protein Negative (Negative) Urine Glucose (UA) >=1000 A (Negative) mg/dL Urine Ketones >=160 A (Negative) Urine Blood Negative (Negative) Urine Nitrite Negative (Negative) Urine Bilirubin Negative (Negative) Urine Urobilinogen 0.2 (0.2) mg/dL Ur Leukocyte Esterase Negative (Negative) U Hyaline Cast (Auto) NONE SEEN (0-2) /LPF Urine Microscopic RBC 0-2 (0-5) /HPF Urine Microscopic WBC 0-2 (0-5) /HPF Ur Epithelial Cells None Seen (None Seen) /HPF Urine Bacteria None Seen (None Seen) /HPF Urine Culture Reflexed NO (NO) Monoscreen (NEGATIVE) Influenza Type A Ag (NEGATIVE) Influenza Type B Ag (NEGATIVE) RSV (PCR) (NEGATIVE) SARS-CoV-2 (PCR) (NEGATIVE) 07/15/25 Range/Units 14:28 WBC (3.98-10.04) x10^3/uL RBC (3.93-5.22) x10^6/uL Hgb (11.2-15.7) g/dL Hct (34.1-44.9) % MCV (79.4-94.8) fL MCH (25.6-32.2) pg MCHC (32.2-35.5) g/dL RDW (11.7-14.4) % Plt Count (182-369) x10^3/uL MPV (9.4-12.3) fL Gran % (34.0-71.1) % Immature Gran % (Auto) (0.001-0.429) % Nucleat RBC Rel Count (0.00-0.2) % Eos # (Auto) (0.04-0.36) x10^3/uL Immature Gran # (Auto) (0.001-0.031) x10^3u/L Absolute Lymphs (auto) (1.18-3.74) x10^3/uL Absolute Monos (auto) (0.24-0.86) x10^3/uL Absolute Nucleated RBC (0.00-0.012) x10^3u/L Lymphocytes % (19.3-51.7) % Monocytes % (4.7-12.5) % Eosinophils % (0.7-5.8) % Basophils % (0.1-1.2) % Absolute Granulocytes (1.56-6.13) x10^3/uL Basophils # (0.01-0.08) x10^3/uL Sodium (135-145) mmol/L Potassium (3.5-5.1) mmol/L Chloride (98-107) mmol/L Carbon Dioxide (22-30) mmol/L Anion Gap (5-15) MEQ/L BUN (7-17) mg/dL Creatinine (0.52-1.04) mg/dL Estimated GFR ML/MIN Glucose (74-106) mg/dL Lactic Acid 1.8 (0.4-2.0) Calcium (8.4-10.2) mg/dL Total Bilirubin (0.2-1.3) mg/dL AST (14-36) U/L ALT (0-35) U/L Alkaline Phosphatase (38-126) U/L Serum Total Protein (6.3-8.2) g/dL Albumin (3.5-5.0) g/dL Amylase (30-110) U/L Lipase (23-300) U/L Urine Color (Yellow) Urine Appearance (Clear) Urine pH (4.6-8.0) Ur Specific [place] (1.005-1.030) Urine Protein (Negative) Urine Glucose (UA) (Negative) mg/dL Urine Ketones (Negative) Urine Blood (Negative) Urine Nitrite (Negative) Urine Bilirubin (Negative) Urine Urobilinogen (0.2) mg/dL Ur Leukocyte Esterase (Negative) U Hyaline Cast (Auto) (0-2) /LPF Urine Microscopic RBC (0-5) /HPF Urine Microscopic WBC (0-5) /HPF Ur Epithelial Cells (None Seen) /HPF Urine Bacteria (None Seen) /HPF Urine Culture Reflexed (NO) Monoscreen (NEGATIVE) Influenza Type A Ag (NEGATIVE) Influenza Type B Ag (NEGATIVE) RSV (PCR) (NEGATIVE) SARS-CoV-2 (PCR) (NEGATIVE) - Progress Progress: improved, re-examined Air Movement: good Progress Note: 07/15/25 15:08 My medical decision making and the assignment of moderate complexity to this patient's medical issue today is based on review of the patient's past medical history, reviewed patient's medication list, reviewed patient drug allergy list, history presents and physical findings on examination. The workup in this patient clues placement of intravenous line, CBC, CMP, amylase, lipase, monotest, viral swabs, urinalysis, infusion of Zofran, infusion of crystalloid solution, chest x-ray. Differential diagnosis includes but is not limited to dehydration, urinary tract infection, viral illness, electrolyte abnormalities, pancreatitis, pulmonary infiltrate, bronchitis 07/15/25 18:57 I interpreted the patient's laboratory data results. Based on laboratory data results, the patient has evidence of mild pancreatitis as well as significant dehydration. Patient states that she does not want to be admitted or placed in a hospital setting if she does not have to. We have given her 2-1/2 L of crystalloid solution. She is tolerating ice chips and clear liquids well. She wants to go home. I will check on her 1 more time and see what she would like to do. I repeated laboratory data on her and it has improved. Patient was told that she does have mild pancreatitis as well as mild DKA. She is dehydrated and her symptoms and labs have improved. 07/15/25 18:59 The final chest x-ray report was interpreted by the radiologist and I reviewed the impression. The impression states no new or acute findings. 07/15/25 19:06 I spoke with this patient again just before discharge to make her aware of her diagnoses. Her laboratory data improved with management as has her symptoms and she desires to go home. She also is aware that if her symptoms worsen she will return to the emergency department immediately. She does not want to be placed in a hospital setting. I will not sign her out AGAINST MEDICAL ADVICE as we will give her a trial of outpatient therapy/management Blood Culture(s) Obtained: Yes Antibiotics given: No Counseled pt/family regarding: lab results, diagnosis, need for follow-up Medical Desision Making - Independent Historian Additional History obtained from: Family - Diagnostic Testing Diagnostic test were ordered, analyzed, and reviewed by me: Yes Radiological Interpretation: Reviewed by me, Teleradiologist Report - Risk of complications Low Risk: Low risk of morbidity from additional dx testing or treatment The pt has a mod risk of morbidity or mortality based on: Need for prescription drug management - Departure Departure Disposition: Home Clinical Impression: DKA (diabetic ketoacidosis), Pancreatitis, Dehydration Condition: Stable Critical Care Time: No Referrals: MEGHAN MORENO [Primary Care Provider, [facility]] - Follow up/PCP as directed Instructions: Nausea and vomiting in adults - ED discharge instructions Additional Instructions: Drink plenty of clear liquids before advancing your diet. Avoid fatty greasy spicy foods. Monitor your blood sugar closely. Return to the emergency department if your symptoms recur/worsen. Call your primary care provider tomorrow, 07/16/2025, to make arrangement for follow-up appointment for further evaluation management. Prescriptions: Ondansetron ODT 4 MG [Zofran Odt 4 mg] 4 mg PO Q6H PRN PRN #10 tablet PRN Reason: Vomiting
[2025-07-15] MEDS ORDERED: PROTONIX 40 MG IV IV ONE (14:34)
[2025-07-15] MEDS ORDERED: Zofran 4 MG/2 ML VIAL ONE (14:34)
[2025-07-15] MEDS: PROTONIX 40 MG IV IV ONE (14:41)
[2025-07-15] MEDS: Zofran 4 MG/2 ML VIAL IV ONE (14:41)
[2025-07-15 14:59] LABS: BASOPHIL % 0.5 % (0.1-1.2); Basophil (Absolute #) 0.06 x10^3/uL (0.01-0.08); Eosinophil (Absolute #) 0.10 x10^3/uL (0.04-0.36); Hematocrit 55.5 % (34.1-44.9); Hemoglobin 18.1 g/dL (11.2-15.7); IMMATURE GRAN # 0.04 x10^3u/L (0.001-0.031); IMMATURE GRAN % 0.4 % (0.001-0.429); Lymphocyte (Absolute #) 2.98 x10^3/uL (1.18-3.74); Mean Corpuscular Hemoglobin 28.8 pg (25.6-32.2); Mean Corpuscular Hgb Concent. 32.6 g/dL (32.2-35.5); Monocyte (Absolute #) 0.59 x10^3/uL (0.24-0.86); NUCLEATED RBC # 0.00 x10^3u/L (0.00-0.012); NUCLEATED RBC % 0.0 % (0.00-0.2); Platelet Count 302 x10^3/uL (182-369); Red Blood Count 6.29 x10^6/uL (3.93-5.22); White Blood Count 11.2 x10^3/uL (3.98-10.04)
[2025-07-15 15:14] LABS: Calcium 9.9 mg/dL (8.4-10.2); Carbon Dioxide 19.0 mmol/L (22-30); Creatinine 1 1.39 mg/dL (0.52-1.04); EST GLOMERULAR FILTRATION RATE 45.1 ML/MIN; Glucose 131.0 mg/dL (74-106); Potassium 3.6 mmol/L (3.5-5.1); SGOT/AST 30.0 U/L (14-36); SGPT/ALT 26.0 U/L (0-35); Total Protein 8.2 g/dL (6.3-8.2)
--- NOTE | 2025-07-15 15:14 | XRAY ---
Indication: Cough. Comparison: January 01, 2020 Portable chest now demonstrates normal heart, lungs, and bony thorax. No new/acute findings.
[2025-07-15 15:30] LABS: Glucose, Urine >=1000 mg/dL (Negative); Protein,Urine Dip Negative (Negative); RBC 0-2 /HPF (0-5); WBC 0-2 /HPF (0-5)
[2025-07-15 15:52] LABS: INFLUENZA A NEGATIVE (NEGATIVE); INFLUENZA B NEGATIVE (NEGATIVE); RESPIRATORY SYNCTIAL VIRUS NEGATIVE (NEGATIVE); SARS-CoV-2 Xpert Express NEGATIVE (NEGATIVE)
[2025-07-15] MEDS ORDERED: Lactated Ringers 1,000 ML IV ONE (15:59)
[2025-07-15] MEDS: Lactated Ringers 1,000 ML IV ONE (16:00)
[2025-07-15 17:28] LABS: Calcium 8.7 mg/dL (8.4-10.2); Carbon Dioxide 20.0 mmol/L (22-30); Creatinine 1 1.17 mg/dL (0.52-1.04); EST GLOMERULAR FILTRATION RATE 55.5 ML/MIN; Glucose 95.0 mg/dL (74-106); Potassium 3.7 mmol/L (3.5-5.1)
[2025-07-15 19:02] VITALS: O2SAT 100
[2025-07-15 19:10] VITALS: BP 137/75; PULSE 80; RESP 18
== END 2025-07-15 19:05 | disposition home or self-care (01) ==
LOC: ED 14:08
DX: E11.10 Type 2 diabetes mellitus with ketoacidosis without coma (principal); K85.90 Acute pancreatitis without necrosis or infection, unspecified; E86.0 Dehydration; R11.2 Nausea with vomiting, unspecified; R51.9 Headache, unspecified; I10 Essential (primary) hypertension; Z79.84 Long term (current) use of oral hypoglycemic drugs; Z79.4 Long term (current) use of insulin; Z79.85 Long-term (current) use of injectable non-insulin antidiabetic drugs; Z79.899 Other long term (current) drug therapy; Z72.0 Tobacco use